=== PATIENT | male | born 2000 | race African-American/Black ===

== ENCOUNTER 2018-11-13 15:30 | Emergency (ER) | payer SELFPAY ==
--- OUTSIDE RECORDS SUMMARY | 2018-11-13 15:32 | XMS REPORT ---
:2000 Author Organization eClinicalWorks Care Team Providers Name Role Phone Ugalde, Na Provider Role Unavailable Allergies, Adverse Reactions, Alerts Substance Reaction Event Type N.K.D.A. Info Not Available Non Drug Allergy Problems Problem Type Condition Code Onset Dates Condition Status Assessment Adult general medical exam Z00.00 Active Problem Cigarette nicotine dependence F17.210 Active without complication Assessment Cigarette nicotine dependence F17.210 Active without complication Medications Medication Code Code Instructions Start End Status Dosage System Date Date Potassium NDC 44481743115 20 MEQ Orally July 12 1 capsule Chloride Once a day 2018 Results No Known Results Summary Purpose eClinicalWorks Submission
--- NOTE | 2018-11-13 16:33 | ER ---
Nurse's Notes [facility] Name: Amadou Hercules Age: 17 yrs Sex: Male : 2000 Arrival Date: 11/13/2018 Time: 15:32 Bed 9 Private MD: Diagnosis: Pain in left leg Presentation: 11/13 15:34 Presenting complaint: Patient states: I hurt my left leg on and have not been la1 able to work, they told me I need a work note to go back. Pt ambulatory with steady gait to [facility]. Transition of care: patient was not received from another setting of care. Onset of symptoms was November 13, 2018. Risk Assessment: Do you want to hurt yourself or someone else? Patient reports no desire to harm self or others. Initial Sepsis Screen: Does the patient meet any 2 criteria? No. Patient's initial sepsis screen is negative. Does the patient have a suspected source of infection? No. Patient's initial sepsis screen is negative. Care prior to arrival: None. 15:34 Method Of Arrival: Ambulatory la1 15:34 Acuity: JACE 5 la1 Historical: - Allergies: 15:36 No Known Allergies; la1 - PMHx: 15:36 None; la1 - Immunization history:: Adult Immunizations up to date. - Social history:: Smoking status: Patient/guardian denies using tobacco. - Ebola Screening: : No symptoms or risks identified at this time. Screenin:37 Abuse screen: Denies threats or abuse. Nutritional screening: No deficits noted. la1 Tuberculosis screening: No symptoms or risk factors identified. Fall Risk None identified. Assessment: 15:36 General: Appears in no apparent distress. Behavior is calm, cooperative. Pain: la1 Complains of pain in left leg. Neuro: Level of Consciousness is awake, alert, obeys commands, Oriented to person, place, time, situation. Cardiovascular: Capillary refill < 3 seconds Patient's skin is warm and dry. Respiratory: Airway is patent Respiratory effort is even, unlabored. GI: No signs and/or symptoms were reported involving the gastrointestinal system. : No signs and/or symptoms were reported regarding the genitourinary system. Musculoskeletal: Circulation, motion, and sensation intact. Range of motion: intact in all extremities. Vital Signs: 15:36 BP 140 / 70; Pulse 73; Resp 16; Temp 97.1; Pulse Ox 98% on R/A; Weight 79.83 kg; Height la1 5 ft. 11 in. (180.34 cm); 15:36 Body Mass Index 24.55 (79.83 kg, 180.34 cm) la1 ED Course: 15:32 Patient arrived in ED. as 15:35 Triage completed. la1 15:36 Arm band placed on right wrist. la1 15:37 Call light in reach. la1 15:37 No provider procedures requiring assistance completed. Patient did not have IV access la1 during this emergency room visit. 15:38 Fili Calderon PA is PHCP. cp 15:38 Augusto Vernon MD is Attending Physician. cp 15:43 Stephanie Urias, RIKY is Primary Nurse. iw 16:35 XRAY Femur LEFT In Process Unspecified. EDMS Administered Medications: No medications were administered Outcome: 16:32 Discharge ordered by MD. cp 16:41 Discharged to home ambulatory. iw 16:41 Condition: stable 16:41 Discharge instructions given to patient, Instructed on discharge instructions, follow up and referral plans. medication usage, Demonstrated understanding of instructions, follow-up care, medications, Prescriptions given X 1. 16:42 Patient left the ED. iw Signatures: Dispatcher [employer] EDMS Xena Snider as Stephanie Urias, RIKY RN iw Pb Poon RN RN la1 Fili Calderon PA PA cp Corrections: (The following items were deleted from the chart) 15:36 15:34 Presenting complaint: Patient states: I hurt my left leg on and have not la1 been able to work, they told me I need a work note to go back. la1
--- NOTE | 2018-11-13 16:33 | EDPHYS ---
Physician Documentation [facility] Name: Amadou Hercules Age: 17 yrs Sex: Male : 2000 Arrival Date: 11/13/2018 Time: 15:32 Bed 9 Private MD: ED Physician Augusto Vernon HPI: 11/13 15:50 This 17 yrs old Black Male presents to ER via Ambulatory with complaints of Leg Pain. cp 15:50 The patient presents with pain, that is acute. The complaints affect the left upper cp leg. Context: resulted from the patient falling, playing basketball, the patient can fully bear weight, the patient is able to ambulate, with mild difficulty. 15:50 Onset: The symptoms/episode began/occurred 3 day(s) ago. Modifying factors: the cp symptoms are aggravated by movement, weight bearing. Associated signs and symptoms: Pertinent negatives calf tenderness, weakness. Treatment prior to arrival includes: no previous treatment. 15:50 Patient reports missing last 2 days of work due to left upper leg pain and needs note cp to return to work. Historical: - Allergies: 15:36 No Known Allergies; la1 - PMHx: 15:36 None; la1 - Immunization history:: Adult Immunizations up to date. - Social history:: Smoking status: Patient/guardian denies using tobacco. - Ebola Screening: : No symptoms or risks identified at this time. ROS: 16:00 Constitutional: Negative for body aches, chills, fever, poor PO intake. cp 16:00 Neck: Negative for pain with movement, pain at rest, stiffness. cp 16:00 Cardiovascular: Negative for chest pain, palpitations. 16:00 Respiratory: Negative for cough, shortness of breath, wheezing. 16:00 Abdomen/GI: Negative for abdominal pain, nausea, vomiting, and diarrhea. 16:00 Back: Negative for pain at rest, pain with movement, radiated pain. 16:00 MS/extremity: Positive for pain, tenderness, of the left upper leg, Negative for decreased range of motion, deformity. 16:00 Neuro: Negative for altered mental status, headache, weakness. 16:00 All other systems are negative. Exam: 16:05 Head/Face: Normocephalic, atraumatic. cp 16:05 Constitutional: The patient appears in no acute distress, alert, awake, non-toxic, well developed, well nourished. 16:05 Eyes: Periorbital structures: appear normal, Conjunctiva: normal, no exudate, no injection, Lids and lashes: appear normal, bilaterally. 16:05 ENT: External ear(s): are unremarkable, Nose: is normal, Mouth: is normal, Posterior pharynx: is normal, airway is patent. 16:05 Neck: ROM/movement: is normal, is supple, without pain, no range of motions limitations, no nuchal rigidity. 16:05 Chest/axilla: Inspection: normal. 16:05 Cardiovascular: Rate: normal. 16:05 Respiratory: the patient does not display signs of respiratory distress, Respirations: normal, no use of accessory muscles, no retractions. 16:05 Abdomen/GI: Exam negative for discomfort, distension, guarding, Inspection: abdomen appears normal. 16:05 Back: pain, is absent, ROM is normal. 16:05 Musculoskeletal/extremity: Extremities: grossly normal except: noted in the left upper leg: pain, swelling, tenderness, There is no evidence of decreased ROM, deformity, ROM: limited passive range of motion due to pain, in the left hip, Perfusion: the extremity is normally perfused throughout, Sensation intact. Vital Signs: 15:36 BP 140 / 70; Pulse 73; Resp 16; Temp 97.1; Pulse Ox 98% on R/A; Weight 79.83 kg; Height la1 5 ft. 11 in. (180.34 cm); 15:36 Body Mass Index 24.55 (79.83 kg, 180.34 cm) la1 MDM: 15:43 Patient medically screened. cp 16:31 Data reviewed: vital signs, nurses notes, radiologic studies, plain films. cp 16:31 Differential diagnosis: closed fracture, contusion. Test interpretation: by ED cp physician or midlevel provider: plain radiologic studies, xrays of left femur negative for fracture. Counseling: I had a detailed discussion with the patient and/or guardian regarding: the historical points, exam findings, and any diagnostic results supporting the discharge/admit diagnosis, radiology results, to return to the emergency department if symptoms worsen or persist or if there are any questions or concerns that arise at home. ED course: VSS. Note given to return to work. 11/13 15:45 Order name: XRAY Femur LEFT cp Administered Medications: No medications were administered Disposition: 16:55 Chart complete. cp Disposition: 11/13/18 16:32 Discharged to Home. Impression: Pain in left leg. - Condition is Stable. - Discharge Instructions: Musculoskeletal Pain, Form - Return To Work. - Prescriptions for Ibuprofen 800 mg Oral Tablet - take 1 tablet by ORAL route every 8 hours As needed take with food; 30 tablet. - Work release form, Medication Reconciliation Form, Thank You Letter, Antibiotic Education, Prescription Opioid Use form. - Follow up: Private Physician; When: 2 - 3 days; Reason: Worsening of condition. - Problem is new. - Symptoms have improved. Addendum: 11/16/2018 15:56 Co-signature as Attending Physician, Augusto Vernon MD. r n Signatures: Dispatcher [employer] EDMS Stephanie Urias RN RN iw Nieto, Roman, MD MD rn Attema, Lee, RN RN la1 Fili Calderon PA PA cp Corrections: (The following items were deleted from the chart) 11/13 16:42 16:32 11/13/2018 16:32 Discharged to Home. Impression: Pain in left leg. Condition is iw Stable. Forms are Medication Reconciliation Form, Thank You Letter, Antibiotic Education, Prescription Opioid Use. Follow up: Private Physician; When: 2 - 3 days; Reason: Worsening of condition. Problem is new. Symptoms have improved. cp
--- NOTE | 2018-11-13 17:03 | RAD REPORT ---
EXAM DESCRIPTION: RAD - Femur Left - 11/13/2018 4:35 pm CLINICAL HISTORY: Left leg pain FINDINGS: A vertical lucency overlies the left femoral neck. Most likely this represents artifact. H owever, if the patient has pain in this region then dedicated plain film series of the left hip would be recommended Remainder of the exam is unremarkable
== END 2018-11-13 16:42 | disposition home or self-care (01) ==
LOC: ER 15:30
DX: M79.605 Pain in left leg (principal)
CPT/HCPCS: 99283

== ENCOUNTER 2019-06-26 21:49 | Emergency (ER) | payer OTHER, SELFPAY ==
--- OUTSIDE RECORDS SUMMARY | 2019-06-26 21:52 | XMS REPORT ---
[...] Status Dosage System Date Date Potassium NDC [id number] 20 MEQ Orally July 12 1 capsule Chloride Once a day 2018 Results No Known Results Summary Purpose eClinicalWorks Submission
[2019-06-26] MEDS ORDERED: FLUORESCEIN SODIUM 1 MG/WRAP ONE (22:41)
[2019-06-26] MEDS ORDERED: TETRACAINE HCL 0.5% 4ML OPTH ONE (22:41)
--- NOTE | 2019-06-26 22:54 | ER ---
Nurse's Notes [facility] [place] Name: Amadou Hercules Age: 18 yrs Sex: Male : 2000 Arrival Date: 06/26/2019 Time: 21:52 Bed 12 Private MD: Diagnosis: Injury of conjunctiva and corneal abrasion without foreign body, right eye Presentation: 06/26 22:32 Presenting complaint: Patient states: he felt like he got something in his left eye bb yesterday he put eye drops in it but it still feels irritated. Transition of care: patient was not received from another setting of care. Onset of symptoms was June 25, 2019. Risk Assessment: Do you want to hurt yourself or someone else? Patient reports no desire to harm self or others. Initial Sepsis Screen: Does the patient meet any 2 criteria? No. Patient's initial sepsis screen is negative. Does the patient have a suspected source of infection? No. Patient's initial sepsis screen is negative. Care prior to arrival: None. 22:32 Method Of Arrival: Ambulatory 22:32 Acuity: JACE 4 bb Historical: - Allergies: 22:33 No Known Allergies; bb - Home Meds: 22:33 None [Active]; bb - PMHx: 22:33 None; bb - PSHx: 22:33 None; bb - Immunization history:: Adult Immunizations up to date, Flu vaccine is up to date. - Coronavirus screen:: The patient has NOT traveled to [place] in the past 14 days. Proceed with normal triage process as indicated. - Social history:: Smoking status: Patient reports the use of cigarette tobacco products, denies chronic smoking, but will smoke occasionally. - Ebola Screening: : No symptoms or risks identified at this time. Screenin:38 Abuse screen: Denies threats or abuse. Nutritional screening: No deficits noted. bb Tuberculosis screening: No symptoms or risk factors identified. Fall Risk None identified. Assessment: 22:38 General: Appears in no apparent distress. Behavior is calm, cooperative. Pain: bb Complains of pain in left eye Pain currently is 6 out of 10 on a pain scale. Neuro: Level of Consciousness is awake, alert, obeys commands, Oriented to person, place, time, situation. Cardiovascular: No deficits noted. Respiratory: Respiratory effort is even, unlabored, Respiratory pattern is regular. GI: No deficits noted. No signs and/or symptoms were reported involving the gastrointestinal system. EENT: Eyes redness to left cornea. Musculoskeletal: Circulation, motion, and sensation intact. 23:08 Reassessment: Patient is alert, oriented x 3, equal unlabored respirations, skin bb warm/dry/pink. pt verbalized understanding of and agrees to plan of care discharge instructions given pt ambulated with steady gait to exit. Vital Signs: 22:33 BP 130 / 60; Pulse 72; Resp 16 S; Temp 98.6(O); Pulse Ox 100% on R/A; Weight 90.72 kg bb (R); Height 5 ft. 11 in. (180.34 cm) (R); Pain 6/10; 22:33 Body Mass Index 27.89 (90.72 kg, 180.34 cm) bb Visual Acuity: 22:33 Left Eye Visual acuity 20/20, ; Right Eye Visual acuity 20/20, ; Both Eyes Visual bb acuity 20/10; Without Lenses; ED Course: 21:52 Patient arrived in ED. jg7 22:31 Geovnany Abreu, FRONT OFFICE MANAGER is PHCP. pm1 22:31 Fili Leo MD is Attending Physician. pm1 22:33 Triage completed. bb 22:33 Arm band placed on Patient placed in an exam room, on a stretcher. bb 22:38 Patient has correct armband on for positive identification. Call light in reach. bb 22:50 Assist provider with eye exam of left eye. using fluorescein stain, Performed by tanya Abreu FRONT OFFICE MANAGER Patient tolerated well. 23:09 Patient did not have IV access during this emergency room visit. 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 Exp: bb 03/23/2021. Lot #: [id number]. } Route: IM; Site: right deltoid; 23:08 Follow up: Response: Medication administered at discharge. bb Outcome: 22:53 Discharge ordered by . pm1 23:09 Discharged to home ambulatory. bb 23:09 Condition: stable 23:09 Discharge instructions given to patient, Instructed on discharge instructions, follow up and referral plans. no driving heavy equipment, medication usage, Demonstrated understanding of instructions, follow-up care, medications, Prescriptions given X 2. 23:10 Patient left the ED. bb Signatures: Sejal Diaz RN RN bb Geovanny Abreu NP FRONT OFFICE MANAGER pm1 Katerina [email or web address] Corrections: (The following items were deleted from the chart) 23:10 23:09 No provider procedures requiring assistance completed. tanya martínez
--- NOTE | 2019-06-26 22:54 | EDPHYS ---
Physician Documentation [facility] [place] Name: Amadou Hercules Age: 18 yrs Sex: Male : 2000 Arrival Date: 06/26/2019 Time: 21:52 Bed 12 Private MD: ED Physician Fili Leo HPI: 06/26 22:43 This 18 yrs old Black Male presents to ER via Ambulatory with complaints of Redness of pm1 Eye. 22:43 The patient is experiencing foreign body sensation, pain, redness, to the left eye, pm1 caused by an unknown mechanism. Onset: The symptoms/episode began/occurred yesterday. Duration: the symptoms are continuous. Aggravated by nothing. Alleviated by nothing. Associated signs and symptoms: Pertinent negatives: fever, visual changes. Patient does not utilize any form of vision correction. Severity of symptoms: in the emergency department the symptoms have improved. The patient has not experienced similar symptoms in the past. It is unknown whether or not the patient has recently seen a physician. Historical: - Allergies: 22:33 No Known Allergies; bb - Home Meds: 22:33 None [Active]; bb - PMHx: 22:33 None; bb - PSHx: 22:33 None; bb - Immunization history:: Adult Immunizations up to date, Flu vaccine is up to date. - Coronavirus screen:: The patient has NOT traveled to [place] in the past 14 days. Proceed with normal triage process as indicated. - Social history:: Smoking status: Patient reports the use of cigarette tobacco products, denies chronic smoking, but will smoke occasionally. - Ebola Screening: : No symptoms or risks identified at this time. ROS: 22:43 Constitutional: Negative for fever, chills, and weight loss. pm1 22:43 ENT: Negative for injury, pain, and discharge, Cardiovascular: Negative for chest pain, palpitations, and edema, Respiratory: Negative for shortness of breath, cough, wheezing, and pleuritic chest pain, Abdomen/GI: Negative for abdominal pain, nausea, vomiting, diarrhea, and constipation. 22:43 Eyes: Positive for foreign body sensation, pain, redness, of the left eye. 22:43 All other systems are negative. Exam: 22:52 Constitutional: This is a well developed, well nourished patient who is awake, alert, pm1 and in no acute distress. Head/Face: Normocephalic, atraumatic. 22:52 ENT: Nares patent. No nasal discharge, no septal abnormalities noted. Tympanic membranes are normal and external auditory canals are clear. Oropharynx with no redness, swelling, or masses, exudates, or evidence of obstruction, uvula midline. Mucous membranes moist. Neck: Trachea midline, no thyromegaly or masses palpated, and no cervical lymphadenopathy. Supple, full range of motion without nuchal rigidity, or vertebral point tenderness. No Meningismus. Chest/axilla: Normal chest wall appearance and motion. Nontender with no deformity. No lesions are appreciated. Cardiovascular: Regular rate and rhythm with a normal S1 and S2. No gallops, murmurs, or rubs. Normal PMI, no JVD. No pulse deficits. Respiratory: Lungs have equal breath sounds bilaterally, clear to auscultation and percussion. No rales, rhonchi or wheezes noted. No increased work of breathing, no retractions or nasal flaring. Skin: Warm, dry with normal turgor. Normal color with no rashes, no lesions, and no evidence of cellulitis. MS/ Extremity: Pulses equal, no cyanosis. Neurovascular intact. Full, normal range of motion. 22:52 Eyes: Periorbital structures: appear normal, Pupils: no acute changes, Extraocular movements: no acute changes, Conjunctiva: injected, in the left eye, Corneas: abrasion, that is small, on the left, at 6 o'clock, foreign body, is not appreciated, a fluorescein strip employed to appreciate the findings, Lids and lashes: appear normal, bilaterally. 22:52 Neuro: Exam negative for acute changes, Orientation: is normal, Motor: moves all fours. Vital Signs: 22:33 BP 130 / 60; Pulse 72; Resp 16 S; Temp 98.6(O); Pulse Ox 100% on R/A; Weight 90.72 kg bb (R); Height 5 ft. 11 in. (180.34 cm) (R); Pain 6/10; 22:33 Body Mass Index 27.89 (90.72 kg, 180.34 cm) bb Visual Acuity: 22:33 Left Eye Visual acuity 20/20, ; Right Eye Visual acuity 20/20, ; Both Eyes Visual bb acuity 20/10; Without Lenses; MDM: 22:31 Patient medically screened. pm1 22:52 Data reviewed: vital signs. Data interpreted: Pulse oximetry: on is 100 %. pm1 Interpretation: normal. Counseling: I had a detailed discussion with the patient and/or guardian regarding: the historical points, exam findings, and any diagnostic results supporting the discharge/admit diagnosis, the need for outpatient follow up, to return to the emergency department if symptoms worsen or persist or if there are any questions or concerns that arise at home. 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 Exp: bb 03/23/2021. Lot #: [id number]. } Route: IM; Site: right deltoid; 23:08 Follow up: Response: Medication administered at discharge. tanya Disposition: 06/27 07:08 Co-signature as Attending Physician, Fili Leo MD I agree with the assessment and mark plan of care. Disposition: 06/26/19 22:53 Discharged to Home. Impression: Injury of conjunctiva and corneal abrasion without foreign body, right eye. - Condition is Stable. - Discharge Instructions: Corneal Abrasion. - Prescriptions for Tylenol- Codeine #3 300-30 mg Oral Tablet - take 2 tablets by ORAL route every 6 hours As needed; 12 tablet. Erythromycin 5 mg/gram (0.5 %) Ophthalmic Ointment - apply 1 ribbon by OPHTHALMIC route every 8 hours; 1 tube. - Work release form, Medication Reconciliation Form, Thank You Letter, Antibiotic Education, Prescription Opioid Use form. - Follow up: Emergency Department; When: As needed; Reason: Worsening of condition. Follow up: Private Physician; When: 2 - 3 days; Reason: Recheck today's complaints, Continuance of care, Re-evaluation by your physician. - Problem is new. - Symptoms have improved. Signatures: Fili Leo MD MD cha Ballard, Brenda, RN RN bb Geovanny Abreu, DOLORES ARCHITECTURAL ADMINISTRATIVE ASSISTANT pm1 Corrections: (The following items were deleted from the chart) 06/26 23:10 22:53 06/26/2019 22:53 Discharged to Home. Impression: Injury of conjunctiva and bb corneal abrasion without foreign body, right eye. Condition is Stable. Forms are Medication Reconciliation Form, Thank You Letter, Antibiotic Education, Prescription Opioid Use. Follow up: Emergency Department; When: As needed; Reason: Worsening of condition. Follow up: Private Physician; When: 2 - 3 days; Reason: Recheck today's complaints, Continuance of care, Re-evaluation by your physician. Problem is new. Symptoms have improved. pm1
[2019-06-26] MEDS ORDERED: TETANUS & DIPHTHERIA TOX,ADULT 0.5 ML VIAL ONE (23:02)
[2019-06-27 00:33] VITALS: BP 130/60; TEMP 98.6; O2SAT 100
== END 2019-06-26 23:10 | disposition home or self-care (01) ==
LOC: ER 21:49
DX: S05.02XA Injury of conjunctiva and corneal abrasion without foreign body, left eye, initial encounter (principal); Z23 Encounter for immunization; Z72.0 Tobacco use
CPT/HCPCS: 90471; 90714; 99283

== ENCOUNTER 2019-08-08 14:02 | Inpatient (IN) | payer OTHER ==
--- OUTSIDE RECORDS SUMMARY | 2019-08-08 14:05 | XMS REPORT ---
:2000 Author Organization eClinicalWorks Care Team Providers Name Role Phone Ugalde, Na Provider Role Unavailable Allergies, Adverse Reactions, Alerts Substance Reaction Event Type N.K.D.A. Info Not Available Non Drug Allergy Problems Problem Type Condition Code Onset Dates Condition Statu s Assessment Adult general medical exam Z00.00 A ctive Problem Cigarette nicotine dependence F17.210 Active without complication Assessment Cigarette nicotine dependence F17.210 Active without complication Medications Medication Code Code Instructions Start End Status Dosage System Date Date Potassium NDC [id number] 20 MEQ Orally July 12 1 capsule Chloride Once a day 2019 Results No Known Results Summary Purpose eClinicalWorks Submission
[2019-08-08] MEDS ORDERED: NA CHLORIDE 0.9% 1,000 ML ONE ×2 (15:13→20:00)
[2019-08-08 15:46] LABS: Absolute Lymphocytes (CBC) 2.1 K/uL (0.7-4.9); Basophils % 0.5 % (0-1.3); Hematocrit 42.7 % (39.6-49.0); Lymphocytes % 25.2 % (15.3-44.8); RBC Red Blood Cell Count 4.66 M/uL (4.33-5.43)
[2019-08-08 15:48] LABS: ALT/SGPT 24 U/L (12-78); AST/SGOT 19 U/L (15-37); Albumin 3.8 g/dL (3.4-5.0); Alkaline Phosphatase 73 U/L (45-117); BUN Blood Urea Nitrogen 15 mg/dL (7-18); Bicarbonate 30 mmol/L (21-32); Bilirubin Direct < 0.1 mg/dL (0-0.2); Bilirubin Total 0.3 mg/dL (0.2-1.0); Glucose Level 92 mg/dL (74-106); Lipase 274 U/L (73-393); Potassium 3.9 mmol/L (3.5-5.1); Protein, Total 7.8 g/dL (6.4-8.2); Sodium Level 140 mmol/L (136-145)
--- NOTE | 2019-08-08 16:29 | RAD REPORT ---
EXAM DESCRIPTION: CT - Abdomen Pelvis W Contrast - 08/08/2019 4:06 pm CLINICAL HISTORY: Abdominal pain COMPARISON: none. TECHNIQUE: Computed axial tomography of the abdomen pelvis was obtained. 100 cc Isovue-300 was admin istered intravenously. Oral contrast was not requested which limits evaluation of bowel. All CT scans are performed using dose optimization technique as appropriate and may include automated exposure control or mA/KV adjustment according to patient size. FINDINGS: The liver, spleen, pancreas, adrenal and kidneys appear unremarkable. There is no evidence of diverticulitis. The appendix is not clearly seen. IMPRESSION: No acute abnormality is displayed. Limited evaluation of the appendix. If the patient has clinical symptoms to suggest appendicitis then a CT scan with oral contrast and opacification of the terminal ileum/cecum would be recommended
--- NOTE | 2019-08-08 19:33 | RAD REPORT ---
EXAM DESCRIPTION: CT - Abdomen Pelvis Wo Contrast - 08/08/2019 7:06 pm CLINICAL HISTORY: Abdominal pain COMPARISON: CT earlier on the same date TECHNIQUE: Computed axial tomography of the abdomen and pelvis was obtained. IV was not requested. O ral contrast was given. Coronal reconstructions performed. All CT scans are performed using dose optimization technique as appropriate and may include automated exposure control or mA/KV adjustment according to patient size. FINDINGS: The liver, spleen, pancreas, adrenals and kidneys appear grossly normal. A borderline dilated tubular structure extends medially from the cecum with mild stranding in the adj acent fat IMPRESSION: The appendix appears borderline dilated. However there is mild adjacent stranding which may indicate early appendicitis. This should be correlated clinically.
--- NOTE | 2019-08-08 19:56 | EDPHYS ---
Physician Documentation [facility] Name: Amadou Hercules Age: 18 yrs Sex: Male : 2000 Arrival Date: 08/08/2019 Time: 14:05 Bed 24 Private MD: ED Physician Fili Leo HPI: 08/07 15:06 This 18 yrs old Black Male presents to ER via Ambulatory with complaints of Abdominal pm1 Pain. 15:06 The patient presents with abdominal pain. pm1 15:06 Onset: The symptoms/episode began/occurred yesterday. pm1 15:19 The symptoms do not radiate. Associated signs and symptoms: Pertinent positives: pm1 diarrhea, Pertinent negatives: nausea and vomiting, chest pain, shortness of breath. The symptoms are described as sharp. Modifying factors: The symptoms are alleviated by nothing, the symptoms are aggravated by nothing. Severity of pain: in the emergency department the pain is actually worse. The patient has not experienced similar symptoms in the past. The patient has not recently seen a physician. Historical: - Allergies: 14:14 No Known Allergies; hb - Home Meds: 14:14 None [Active]; hb - PMHx: 14:14 None; hb - PSHx: 14:14 None; hb - Immunization history:: Adult Immunizations up to date. - Social history:: Smoking status: Patient denies any tobacco usage or history of. ROS: 15:19 Constitutional: Negative for fever, chills, and weight loss, Neck: Negative for injury, pm1 pain, and swelling, Cardiovascular: Negative for chest pain, palpitations, and edema, Respiratory: Negative for shortness of breath, cough, wheezing, and pleuritic chest pain. 15:19 Back: Negative for injury and pain, : Negative for injury, bleeding, discharge, and swelling, MS/Extremity: Negative for injury and deformity, Skin: Negative for injury, rash, and discoloration, Neuro: Negative for headache, weakness, numbness, tingling, and seizure. 15:19 Abdomen/GI: Positive for abdominal pain, diarrhea, Negative for nausea and vomiting, constipation. Exam: 15:19 Constitutional: This is a well developed, well nourished patient who is awake, alert, pm1 and in no acute distress. Head/Face: Normocephalic, atraumatic. Neck: Trachea midline, no thyromegaly or masses palpated, and no cervical lymphadenopathy. Supple, full range of motion without nuchal rigidity, or vertebral point tenderness. No Meningismus. Chest/axilla: Normal chest wall appearance and motion. Nontender with no deformity. No lesions are appreciated. Cardiovascular: Regular rate and rhythm with a normal S1 and S2. No gallops, murmurs, or rubs. Normal PMI, no JVD. No pulse deficits. Respiratory: Lungs have equal breath sounds bilaterally, clear to auscultation and percussion. No rales, rhonchi or wheezes noted. No increased work of breathing, no retractions or nasal flaring. 15:19 Back: No spinal tenderness. No costovertebral tenderness. Full range of motion. Skin: Warm, dry with normal turgor. Normal color with no rashes, no lesions, and no evidence of cellulitis. MS/ Extremity: Pulses equal, no cyanosis. Neurovascular intact. Full, normal range of motion. 15:19 Abdomen/GI: Inspection: abdomen appears normal, Bowel sounds: normal, Palpation: soft, in all quadrants, mild abdominal tenderness, in the umbilical area, mass, is not appreciated, rebound tenderness, is not appreciated. 15:19 Neuro: Exam negative for acute changes, Orientation: is normal, Motor: is normal, moves all fours. Vital Signs: 14:11 BP 154 / 77; Pulse 78; Resp 16; Temp 97.9; Pulse Ox 100% ; Weight 90.72 kg; Height 6 hb ft. (182.88 cm); Pain 0/10; 15:16 BP 134 / 74; Pulse 70; Resp 18; Pulse Ox 100% ; sv 16:56 BP 131 / 78; Pulse 72; Resp 16; Pulse Ox 99% ; sv 18:16 BP 122 / 87; Pulse 63; Resp 16; Pulse Ox 99% ; sv 19:15 BP 123 / 86; Pulse 69; Resp 16; Pulse Ox 100% on R/A; rv 20:30 BP 126 / 63; Pulse 66; Resp 16; Temp 98; Pulse Ox 100% on R/A; Pain 0/10; rv 21:30 BP 133 / 72; Pulse 74; Resp 17; Pulse Ox 100% on R/A; rv 22:15 BP 135 / 107; Pulse 68; Resp 16; Pulse Ox 100% on R/A; rv 14:11 Body Mass Index 27.12 (90.72 kg, 182.88 cm) hb MDM: 14:45 Patient medically screened. pm1 17:24 Data reviewed: vital signs. Data interpreted: Pulse oximetry: on room air is 99 %. pm1 Interpretation: normal. 19:54 Counseling: I had a detailed discussion with the patient and/or guardian regarding: the kb historical points, exam findings, and any diagnostic results supporting the discharge/admit diagnosis, lab results, radiology results, the need for further work-up and treatment in the hospital. Physician consultation: Lexa Beckwith MD was contacted at 19:54, regarding admission, to the medical/surgical unit. patient's condition. 19:56 ED course: Consulted with Dr. Beckwith, will admit overnight, abx, NPO, fluids, and eval rn for surgery in AM.. 08/07 15:06 Order name: Basic Metabolic Panel; Complete Time: 15:56 pm1 08/07 15:06 Order name: CBC with Diff; Complete Time: 15:56 pm1 08/07 15:06 Order name: Creatinine for Radiology; Complete Time: 15:56 pm1 08/07 15:06 Order name: Hepatic Function; Complete Time: 15:56 pm1 08/07 15:06 Order name: Lipase; Complete Time: 15:56 pm1 08/07 15:06 Order name: CT Abd/Pelvis - IV Contrast Only; Complete Time: 16:32 pm1 08/07 15:06 Order name: IV Saline Lock; Complete Time: 15:20 pm1 08/07 15:06 Order name: Labs collected and sent; Complete Time: 15:20 pm1 08/07 16:57 Order name: Abdomen ; Complete Time: 19:40 EDMS Administered Medications: 15:21 Drug: NS 0.9% 1000 ml Route: IV; Rate: 1000 ml; Site: right antecubital; sv 16:00 Follow up: Response: No adverse reaction; IV Status: Completed infusion; IV Intake: sv 1000ml 20:00 Drug: Mefoxin 1 grams Route: IVPB; Infused Over: 30 mins; Site: right antecubital; rv 20:31 Follow up: IV Status: Completed infusion rv 20:00 Drug: NS 0.9% 1000 ml Route: IV; Rate: 125 ml/hr; Site: right antecubital; rv 20:31 Follow up: IV Status: Infusion continued upon admission rv 20:16 Drug: Flagyl 500 mg Volume: 100 ml; Route: IVPB; Rate: 200 ml/hr; Infused Over: 30 rv mins; Site: right antecubital; 21:00 Follow up: IV Status: Completed infusion; IV Intake: 100ml rv Disposition: 08/08/19 19:55 Hospitalization ordered by Lexa Beckwith for Observation. Preliminary diagnosis is Acute appendicitis. - Bed requested for Telemetry/MedSurg (observation). - Status is Observation. rv - Condition is Stable. - Problem is new. - Symptoms are unchanged. Addendum: 08/10/2019 09:57 Co-signature as Attending Physician, Fili Leo MD I agree with the assessment and c ochoa plan of care. Signatures: Dispatcher [employer] EDNH Francia Moore, EXTRACTIONS TECHNOLOGIST-C EXTRACTIONS TECHNOLOGIST-CkJeanine Frey, RN Fili Santoyo MD MD cha Nieto, Roman, MD MD rn Lasagna, Tonya RN RN tl1 Geovanny Abreu, DAY SPA MANAGER DAY SPA MANAGER pm1 Leela White, RN RN Manuel Lewis, RN RN rv Corrections: (The following items were deleted from the chart) 04 16:57 16:35 Abdomen Pelvis W Con+CT.RAD.BRZ ordered. [facility] EDNH 22:30 19:55 Hospitalization Ordered by Lexa Beckwith MD for Observation. Preliminary diagnosis tl1 is Acute appendicitis. Bed requested for Telemetry/MedSurg (observation). Status is Observation. Condition is Stable. Problem is new. Symptoms are unchanged. kb 22:43 22:30 08/08/2019 19:55 Hospitalization Ordered by Lexa Beckwith MD for Observation. rv Preliminary diagnosis is Acute appendicitis. Bed requested for Telemetry/MedSurg (observation). Status is Observation. Condition is Stable. Problem is new. Symptoms are unchanged. tl1
--- NOTE | 2019-08-08 19:56 | ER ---
Nurse's Notes [facility] Name: Amadou Hercules Age: 18 yrs Sex: Male : 2000 Arrival Date: 08/08/2019 Time: 14:05 Bed 24 Private MD: Diagnosis: Acute appendicitis Presentation: 08/07 14:11 Chief complaint: Patient states: "I had stomach pain and diarrhea yesterday after I ate hb [employer], I feel better today but my job is making me get the ok to come back to work." Denies pain/N/V/D/fever. Coronavirus screen: Proceed with normal triage. Ebola Screen: No symptoms or risks identified at this time. Initial Sepsis Screen: Does the patient meet any 2 criteria? No. Patient's initial sepsis screen is negative. Does the patient have a suspected source of infection? No. Patient's initial sepsis screen is negative. Risk Assessment: Do you want to hurt yourself or someone else? Patient reports no desire to harm self or others. Onset of symptoms was August 07, 2019. 14:11 Method Of Arrival: Ambulatory hb 14:11 Acuity: JACE 4 hb 19:00 Acuity: JACE 3 rv Historical: - Allergies: 14:14 No Known Allergies; hb - Home Meds: 14:14 None [Active]; hb - PMHx: 14:14 None; hb - PSHx: 14:14 None; hb - Immunization history:: Adult Immunizations up to date. - Social history:: Smoking status: Patient denies any tobacco usage or history of. Screenin:14 Abuse screen: Denies threats or abuse. Denies injuries from another. Nutritional hb screening: No deficits noted. Tuberculosis screening: No symptoms or risk factors identified. Fall Risk None identified. Assessment: 15:10 General: Appears in no apparent distress. comfortable, well groomed, well developed, sv Behavior is calm, cooperative, appropriate for age. Pain: Complains of pain in umbilical area. Neuro: Level of Consciousness is awake, alert, obeys commands, Oriented to person, place, time, situation, Moves all extremities. Full function Gait is steady. Respiratory: Airway is patent Respiratory effort is even, unlabored, Respiratory pattern is regular, symmetrical. GI: Abdomen is flat, Abd is soft X 4 quads Abdomen is tender to palpation in umbilical area. Derm: Skin is pink, warm \\T\\ dry. 15:21 Reassessment: Patient appears in no apparent distress at this time. No changes from sv previously documented assessment. Patient and/or family updated on plan of care and expected duration. Pain level reassessed. Patient is alert, oriented x 3, equal unlabored respirations, skin warm/dry/pink. 16:20 Reassessment: Patient appears in no apparent distress at this time. No changes from sv previously documented assessment. Patient and/or family updated on plan of care and expected duration. Pain level reassessed. Patient is alert, oriented x 3, equal unlabored respirations, skin warm/dry/pink. 17:05 Reassessment: Patient appears in no apparent distress at this time. No changes from sv previously documented assessment. Patient and/or family updated on plan of care and expected duration. Pain level reassessed. Patient is alert, oriented x 3, equal unlabored respirations, skin warm/dry/pink. 18:16 Reassessment: Patient appears in no apparent distress at this time. No changes from sv previously documented assessment. Patient and/or family updated on plan of care and expected duration. Pain level reassessed. Patient is alert, oriented x 3, equal unlabored respirations, skin warm/dry/pink. 19:20 Reassessment: Patient appears in no apparent distress at this time. Patient and/or rv family updated on plan of care and expected duration. Pain level reassessed. Patient is alert/active/playful, equal unlabored respirations, skin warm/dry/pink. PATIENT CAME BACK FROM CT SCAN. AWAITING RESULT OF THE SCAN. PATIENT DENIES NAUSEA OR PAIN. Patient denies pain at this time. GI: Bowel sounds present X 4 quads. 20:17 Reassessment: DR NICOLAS ASSESSED AND EXPLAINED THE TEST RESULTS TO THE PATIENT AND PLAN rv OF CARE. PATIENT AGREED FOR ADMISSION AND TO UNDERGO SURGERY. 22:28 Reassessment: STILL AWAITING ROOM ASSIGNMENT. rv Vital Signs: 14:11 BP 154 / 77; Pulse 78; Resp 16; Temp 97.9; Pulse Ox 100% ; Weight 90.72 kg; Height 6 hb ft. (182.88 cm); Pain 0/10; 15:16 BP 134 / 74; Pulse 70; Resp 18; Pulse Ox 100% ; sv 16:56 BP 131 / 78; Pulse 72; Resp 16; Pulse Ox 99% ; sv 18:16 BP 122 / 87; Pulse 63; Resp 16; Pulse Ox 99% ; sv 19:15 BP 123 / 86; Pulse 69; Resp 16; Pulse Ox 100% on R/A; rv 20:30 BP 126 / 63; Pulse 66; Resp 16; Temp 98; Pulse Ox 100% on R/A; Pain 0/10; rv 21:30 BP 133 / 72; Pulse 74; Resp 17; Pulse Ox 100% on R/A; rv 22:15 BP 135 / 107; Pulse 68; Resp 16; Pulse Ox 100% on R/A; rv 14:11 Body Mass Index 27.12 (90.72 kg, 182.88 cm) hb ED Course: 14:05 Patient arrived in ED. as 14:13 Triage completed. hb 14:14 Arm band placed on. hb 14:44 Geovanny Aberu NP is PHCP. pm1 14:44 Fili Leo MD is Attending Physician. pm1 14:47 Jeanine Mcgowan, RIKY is Primary Nurse. sv 15:10 Patient has correct armband on for positive identification. Placed in gown. Bed in low sv position. Call light in reach. Pulse ox on. NIBP on. Door closed. Head of bed elevated. 15:15 Inserted saline lock: 20 gauge in right antecubital area, using aseptic technique. sv Blood collected. Flushed right antecubital with 5 ml normal saline. 16:09 CT Abd/Pelvis - IV Contrast Only In Process Unspecified. EDMS 17:54 PHCP role handed off by Geovanny Abreu NP kb 17:54 Francia Moore FNP-C is PHCP. kb 18:[address] Scan. sv 19:02 Report given to Jai LAN. sv 19:06 Abdomen In Process Unspecified. EDMS 19:07 Primary Nurse role handed off by Jeanine Mcgowan RN sv 19:19 Manuel Lewis RN is Primary Nurse. rv 19:55 Lexa Beckwith MD is Hospitalizing Provider. kb 20:31 No provider procedures requiring assistance completed. IV is patent, with fluids rv infusing freely, with good blood return, Patient admitted, IV remains in place. Administered Medications: 15:21 Drug: NS 0.9% 1000 ml Route: IV; Rate: 1000 ml; Site: right antecubital; sv 16:00 Follow up: Response: No adverse reaction; IV Status: Completed infusion; IV Intake: sv 1000ml 20:00 Drug: Mefoxin 1 grams Route: IVPB; Infused Over: 30 mins; Site: right antecubital; rv 20:31 Follow up: IV Status: Completed infusion rv 20:00 Drug: NS 0.9% 1000 ml Route: IV; Rate: 125 ml/hr; Site: right antecubital; rv 20:31 Follow up: IV Status: Infusion continued upon admission rv 20:16 Drug: Flagyl 500 mg Volume: 100 ml; Route: IVPB; Rate: 200 ml/hr; Infused Over: 30 rv mins; Site: right antecubital; 21:00 Follow up: IV Status: Completed infusion; IV Intake: 100ml rv Intake: 16:00 IV: 1000ml; Total: 1000ml. sv 21:00 IV: 100ml; Total: 1100ml. rv Outcome: 19:55 Decision to Hospitalize by Provider. kb 22:38 Admitted to Med/surg accompanied by tech, room 216, with chart, Report called to NIA cartagena RN 22:38 Condition: good 22:38 Instructed on the need for admit, Demonstrated understanding of instructions. 22:43 Patient left the ED. rv Signatures: Dispatcher [employer] EDFrancia Li, FILM CRITIC-C FILM CRITIC-Jeanine Bo, RN Xena Fry Patrick, LICENSED CLINICIAN LICENSED CLINICIAN pm1 Leela White RN RN hb Vicente, Ronaldo, RN RN rv
[2019-08-08] MEDS ORDERED: CEFOXITIN/SWI 1gm 1 GM/10 ML SYR ONE (20:11)
[2019-08-08] MEDS ORDERED: METRONIDAZOLE 500mg IVPB 500 MG/100 ML BAG IV ONE (20:12)
[2019-08-08] MEDS ORDERED: MORPHINE 4 MG/ML SYR IV PRN (22:47)
[2019-08-08] MEDS ORDERED: ONDANSETRON 4 MG/2 ML VIAL IV PRN (22:47)
[2019-08-08] MEDS ORDERED: ACETAMINOPHEN 500 MG TAB PO PRN (22:47)
[2019-08-08 22:59] VITALS: BMI 27.1
[2019-08-08] MEDS: NA CHLORIDE 0.9% 1,000 ML IV SCH (23:12)
[2019-08-09] MEDS ORDERED: CEFOXITIN 1 GM/10 ML SYR IV SCH (02:00)
[2019-08-09] MEDS ORDERED: CEFOXITIN SODIUM 1 GM/VIAL ONE (02:02)
[2019-08-09] MEDS: METRONIDAZOLE 500mg IVPB 500 MG/100 ML BAG IV SCH ×3 (04:26→20:17)
[2019-08-09] MEDS: NA CHLORIDE 0.9% 1,000 ML IV SCH ×3 (06:11→22:47)
[2019-08-09 06:16] LABS: Absolute Lymphocytes (CBC) 2.2 K/uL (0.7-4.9); Lymphocytes % 38.8 % (15.3-44.8); MPV 7.7 fL (7.6-11.3); RBC Red Blood Cell Count 4.36 M/uL (4.33-5.43)
[2019-08-09 06:26] LABS: BUN Blood Urea Nitrogen 10 mg/dL (7-18); Bicarbonate 29 mmol/L (21-32); Glucose Level 86 mg/dL (74-106); Potassium 4.1 mmol/L (3.5-5.1); Sodium Level 142 mmol/L (136-145)
[2019-08-09] MEDS: CEFOXITIN/SWI 1gm 1 GM/10 ML SYR IV SCH ×4 (08:49→23:37)
[2019-08-09] MEDS ORDERED: Ringers Lactate 1,000 ML IV ONE (10:13)
--- NOTE | 2019-08-09 10:28 | PREOPHP ---
Date of Admission: 08/08/2019 Reason For Consultation: Abdominal pain. History Of Present Illness: Patient is a 18-year-old gentleman comes in with a 2-day history of diff use periumbilical pain localizing to the right lower quadrant associated with nausea, 1 episode of di arrhea, no nausea or vomiting. No sore throat, runny nose, cough, headaches, or dizziness. He does have anorexia and no fever or chills. Review of Systems: Otherwise unremarkable. Past Medical History: Negative. Past Surgical History: Negative. Allergies: NO ALLERGIES. Social History: He does not smoke. Drinks occasionally. Family History: Noncontributory. Physical Examination: Vital Signs: Stable. He is afebrile. He is awake, alert, and oriented x3. Head and Neck: Cranial nerves 2 through 12 grossly within normal limits. No neck masses. No JVD. Throat clear. Neck is supple. Chest: Clear. Heart: S1 and S2. Abdomen: Soft, nondistended, positive Rovsing sign, positive right lower quadrant tenderness. No re bound. No rigidity or guarding. Extremity: Adequately perfused. Nontender. Neuro: Nonfocal. Laboratory Data: Reviewed. His white count is normal. Chemistry reviewed, also normal. CT of the abdomen and pelvis reviewed with the radiologist, essentially is consistent with acute appendicitis w ith dilatation and adjacent stranding of the appendiceal mesentery. Assessment: Acute appendicitis. Plan: Admit n.p.o., IV fluid, IV antibiotic, to the OR for laparoscopic appendectomy, possible open. The patient understands the risks, benefits, and alternatives and agrees to procedure. AIDAN/ANDRADE Voice ID: [id number]
[2019-08-09] MEDS ORDERED: dexAMETHasone 10 MG/ML VIAL ONE (10:54)
[2019-08-09] MEDS ORDERED: propofoL 200 MG/20 ML VIAL IV ONE (10:54)
[2019-08-09] MEDS ORDERED: FENTANYL CITR 100 MCG/2 ML ONE (10:54)
[2019-08-09] MEDS ORDERED: MIDAZOLAM HCL 2 MG/2 ML INJ ONE (10:54)
[2019-08-09] MEDS ORDERED: ONDANSETRON 4 MG/2 ML VIAL ONE (10:55)
[2019-08-09] MEDS ORDERED: LIDOCAINE 2% MPF 5 ML VIAL ONE (10:55)
[2019-08-09] MEDS ORDERED: ROCURONIUM 50 MG/5 ML VIAL IV ONE (10:55)
[2019-08-09] MEDS ORDERED: GLYCOPYRROLATE 0.2 MG/ML SYR ONE (12:43)
[2019-08-09] MEDS ORDERED: KETOROLAC 30 MG/ML INJ ONE (12:44)
[2019-08-09] MEDS ORDERED: NEOSTIGMINE 1 MG/ML -5 ML ONE (12:44)
--- NOTE | 2019-08-09 12:57 | P.OP ---
Volunteer Services Manager: Safia HILL Preoperative diagnosis: Acute Appendicitis Postoperative diagnosis: Same Primary procedure: Lap Appy Anesthesia: General Estimated blood loss: min Specimen: Appy Findings: as above Complications: None Transferred to: Recovery Room Condition: Good
[2019-08-09] MEDS ORDERED: MORPHINE 10 MG/ML VIAL ONE (13:02)
[2019-08-09] MEDS ORDERED: HYDROCODONE/APAP 7.5/325 MG TAB PO PRN (13:12)
[2019-08-09] MEDS ORDERED: ONDANSETRON 4 MG/2 ML VIAL IV PRN (13:12)
[2019-08-09] MEDS: MEPERIDINE HCL 25 MG/0.5 ML ONE ×2 (14:00→14:05)
[2019-08-09] MEDS: HYDROMORPHONE HCL 1 MG/ML INJ ONE ×2 (14:08→14:15)
[2019-08-09] MEDS: HYDROMORPHONE HCL 1 MG/ML INJ IV PRN ×2 (16:40→20:47)
--- NOTE | 2019-08-09 23:10 | OP ---
Date of Procedure: 08/09/2019 Surgeon: Lexa Beckwith MD Body Joiner: SERGIO Beltrán. Preoperative Diagnosis: Acute appendicitis. Postoperative Diagnosis: Acute suppurative appendicitis. Estimated Blood Loss: Minimal. Procedure: Laparoscopic appendectomy. Specimen: Appendix. Findings: As above. Anesthesia: General. Complications: None. Disposition: Patient tolerated the procedure in stable condition, taken to Recovery in good conditio n. Procedure In Detail: Patient was brought to the OR and placed in supine position. General anesthesi a was begun. Patient was prepped and draped in usual sterile fashion. Marcaine 0.5% was infiltrated locally. A #15 blade was used to make a 1 cm supraumbilical midline incision. Subcutaneous tissue divided. Fascia was identified and divided. A #1 Vicryl stay suture was placed. Peritoneal cavity was entered with sharp and blunt dissection. 12 mm trocar was placed into the peritoneal cavity unde r direct vision. Pneumoperitoneum was established and then, two 5 trocars were placed, 1 in the supr apubic region and 1 in the left lateral quadrant. Laparoscopy revealed acute suppurative appendiciti s with the appendix going medially and then superiorly. Tip of the appendix was identified and then the mesoappendix divided with Endo-JEFFREY stapling device until the base of the appendix on the cecum cl early identified and that was divided as well. The appendix was retrieved through the umbilicus via EndoCatch bag. Right lower quadrant was examined. There was some oozing of blood noted on the mesoa ppendix which was controlled with vascular clips. Right lower quadrant was irrigated. Effluent was clear. No evidence of bleeding or bowel injury appreciated. Subsequently, all trocars were removed under direct vision. Stay sutures were tied to each other across the fascial defect. Subcutaneous w ounds were irrigated. Bleeding controlled with cautery. 3-0 chromic used to approximate the subcuta neous tissue and then close the skin. Sterile dressing was applied. Patient was awakened and taken to Recovery in good general condition. /MODL Voice ID: [id number] Report ID: [id number]
[2019-08-10] MEDS: METRONIDAZOLE 500mg IVPB 500 MG/100 ML BAG IV SCH (03:08)
[2019-08-10] MEDS: NA CHLORIDE 0.9% 1,000 ML IV SCH ×2 (03:15→05:04)
[2019-08-10] MEDS: CEFOXITIN/SWI 1gm 1 GM/10 ML SYR IV SCH (05:07)
[2019-08-10 07:02] LABS: Absolute Lymphocytes (CBC) 1.3 K/uL (0.7-4.9); Basophils % 0.3 % (0-1.3); Hematocrit 42.9 % (39.6-49.0); Lymphocytes % 10.9 % (15.3-44.8); MPV 8.7 fL (7.6-11.3)
[2019-08-10 08:41] VITALS: O2SAT 99
[2019-08-10 09:56] VITALS: BP 130/69; TEMP 97.3
--- NOTE | 2019-08-10 10:26 | DS ---
Date of Discharge: 08/10/2019 Admitting Diagnosis: Acute appendicitis. Discharge Diagnosis: Acute appendicitis. Procedure Performed: Laparoscopic appendectomy. Hospital Course: Patient is a 18-year-old gentleman underwent the aforementioned procedure. Postope ratively, he was tolerating diet, ambulating, pain controlled on p.o. pain medication, afebrile there fore patient will be discharged to home. Disposition: Home. Condition: Stable. Discharge Instructions: Remove outer dressing in a.m. Shower. Keep wound clean and dry, keep Steri -Strips on at all times. Follow up in my office in 1 week. Call for appointment. Jazmine. Prescription given, Tylenol No. 3 for pain. /MODL Voice ID: [id number] Report ID: [id number]
== END 2019-08-10 10:43 | disposition home or self-care (01) | DRG 343 ==
LOC: ER 14:02 → ERHOLD 19:56 → 2ND 22:37 → OBSVTOIN 08-10 07:21
PROVIDERS: ADMIT Surgery; ATTEND Surgery
PROC: 0DTJ4ZZ Resection of Appendix, Percutaneous Endoscopic Approach (ICD-10-PCS; principal; 2019-08-09 14:15)
DX: K35.80 Unspecified acute appendicitis (principal)
CPT/HCPCS: 36415; 74176; 74177; 80048; 80076; 83690; 85025; 88304; 96361; 96365; 99285; G0378; J0694; J1100; J1170; J2175; J2250; J2405; J2704; J2710; J3010; J7030; J7120; Q9967

== ENCOUNTER 2019-08-22 04:58 | Inpatient (IN) | payer OTHER ==
--- OUTSIDE RECORDS SUMMARY | 2019-08-22 05:00 | XMS REPORT ---
:2000 Author Organization [facility] t Address [address] [place] [address] Care Team Providers Name Role Phone Unavailable Unavailable Unavailable Problems Condition Condition Condition Status Onset Resolution Last Treatin g Comments Name Details Category Date Date Treatment Clinician Date Cigarette Cigarette Problem Active nicotine nicotine dependence dependence without without complicatio complicatio n n Allergies, Adverse Reactions, Alerts This patient has no known allergies or adverse reactions. Medications Ordered Filled Start Stop Current Ordering Indication Dosage Frequency Signature Comments Components Medication Medication Date Date Medication? Clinician (SIG) Name Name Potassium Potassium 2019-0 Yes Na Ugalde 1 capsule Chloride Chloride 3-12 00:00: 00 Encounters Start End Encounter Admission Attending Care Care Encounter Date/Time Date/Time Type Type Clinicians Facility Department ID 2019-08-08 2019-08-08 [id number] 10:31:00 10:31:00 [place] [facility] 2018-07-26 2018-07-26 [id number] 15:00:00 15:00:00 [facility]
--- OUTSIDE RECORDS SUMMARY | 2019-08-22 05:00 | XMS REPORT ---
:2000 Author Organization [employer] Care Team Providers Name Role Phone Ugalde, Na Provider Role Unavailable Allergies No Known Allergies Problems Problem Type Condition Code Onset Dates Condition Statu s Problem Cigarette nicotine dependence F17.210 Active without complication Medications No Known Medications Results No Known Results Summary Purpose [employer] Submission
[2019-08-22] MEDS ORDERED: NA CHLORIDE 0.9% 1,000 ML ONE (05:12)
[2019-08-22] MEDS ORDERED: ONDANSETRON 4 MG/2 ML VIAL ONE ×2 (05:12→15:32)
[2019-08-22] MEDS ORDERED: MORPHINE 4 MG/ML SYR ONE ×2 (05:16→06:51)
[2019-08-22 05:35] LABS: ALT/SGPT 31 U/L (12-78); AST/SGOT 19 U/L (15-37); Albumin 4.6 g/dL (3.4-5.0); Alkaline Phosphatase 75 U/L (45-117); BUN Blood Urea Nitrogen 14 mg/dL (7-18); Bicarbonate 26 mmol/L (21-32); Bilirubin Direct 0.1 mg/dL (0-0.2); Bilirubin Total 0.4 mg/dL (0.2-1.0); Glucose Level 114 mg/dL (74-106); Lipase 238 U/L (73-393); Potassium 3.4 mmol/L (3.5-5.1); Protein, Total 9.4 g/dL (6.4-8.2); Sodium Level 138 mmol/L (136-145)
[2019-08-22] MEDS ORDERED: PANTOPRAZOLE 40 MG INJ ONE (05:37)
[2019-08-22 05:54] LABS: Basophils % 0.5 % (0-1.3); Hematocrit 48.2 % (39.6-49.0); Lymphocytes % 15.5 % (15.3-44.8); MPV 7.9 fL (7.6-11.3); RBC Red Blood Cell Count 5.35 M/uL (4.33-5.43)
--- NOTE | 2019-08-22 06:50 | EDPHYS ---
Physician Documentation [facility] Name: Amadou Hercules Age: 18 yrs Sex: Male : 2000 Arrival Date: 08/22/2019 Time: 04:59 Bed 8 Private MD: ED Physician Lilibeth Callahan HPI: 08/21 06:46 This 18 yrs old Black Male presents to ER via EMS with complaints of Abdominal Pain. ma2 06:46 The patient presents with abdominal pain. Onset: The symptoms/episode began/occurred ma2 gradually, 2 day(s) ago. Associated signs and symptoms: Pertinent positives: nausea and vomiting, Pertinent negatives: blood in stools, shortness of breath, testicular pain. The symptoms are described as burning. Severity of pain: At its worst the pain was moderate in the emergency department the pain is unchanged. The patient has not experienced similar symptoms in the past. s/p appendectomy 1 week ago . Historical: - Allergies: 05:04 No Known Allergies; ea - Home Meds: 05:04 None [Active]; ea - PSHx: 05:04 Appendectomy; ea - Immunization history:: Adult Immunizations up to date. - Social history:: Patient/guardian denies using alcohol, street drugs, The patient lives with family, Smoking status: Patient reports the use of cigarette tobacco products, denies chronic smoking, but will smoke occasionally. - Family history:: not pertinent. ROS: 06:46 Constitutional: Negative for fever, chills, and weight loss. ma2 06:46 All other systems are negative. Exam: 06:46 Constitutional: This is a well developed, well nourished patient who is awake, alert, ma2 and in no acute distress. Chest/axilla: Normal chest wall appearance and motion. Nontender with no deformity. No lesions are appreciated. Cardiovascular: Regular rate and rhythm with a normal S1 and S2. No gallops, murmurs, or rubs. Normal PMI, no JVD. No pulse deficits. Respiratory: Lungs have equal breath sounds bilaterally, clear to auscultation and percussion. No rales, rhonchi or wheezes noted. No increased work of breathing, no retractions or nasal flaring. Abdomen/GI: moderetly tender all over no rebound , with normal bowel sounds. No distension or tympany. No guarding or rebound. MS/ Extremity: Pulses equal, no cyanosis. Neurovascular intact. Full, normal range of motion. Neuro: Awake and alert, GCS 15, oriented to person, place, time, and situation. Cranial nerves II-XII grossly intact. Motor strength 5/5 in all extremities. Sensory grossly intact. Cerebellar exam normal. Normal gait. Vital Signs: 05:00 BP 149 / 98; Pulse 77; Resp 18; Pulse Ox 99% on R/A; ea 05:01 BP 154 / 91; Pulse 85; Resp 20; Temp 98.3; Pulse Ox 100% on R/A; Weight 90.72 kg; ea Height 6 ft. (182.88 cm); Pain 9/10; 06:30 BP 143 / 59; Pulse 68; Resp 18; Pulse Ox 98% on R/A; ea 07:00 BP 160 / 81; Pulse 79; Resp 16; Pulse Ox 99% ; sv 07:33 BP 162 / 82; Pulse 62; Resp 17; Pulse Ox 97% ; sv 05:01 Body Mass Index 27.12 (90.72 kg, 182.88 cm) ea MDM: 06:41 Patient medically screened. ma2 06:46 Differential diagnosis: Cholelithiasis, diverticulitis, gastritis, gastroesophageal ma2 reflux disease, pancreatitis. Data reviewed: vital signs, nurses notes. Counseling: I had a detailed discussion with the patient and/or guardian regarding: the historical points, exam findings, and any diagnostic results supporting the discharge/admit diagnosis, the presence of at least one elevated blood pressure reading (>120/80) during this emergency department visit, the need for further work-up and treatment in the hospital. Response to treatment: the patient's symptoms have markedly improved after treatment. ED course: discussed with dr. jaime . 08/21 05:04 Order name: Basic Metabolic Panel; Complete Time: 06:44 sg 08/21 05:04 Order name: CBC with Diff; Complete Time: 06:44 sg 08/21 05:04 Order name: Creatinine for Radiology; Complete Time: 06:44 sg 08/21 05:04 Order name: Hepatic Function; Complete Time: 06:44 sg 08/21 05:04 Order name: Lipase; Complete Time: 06:44 sg 08/21 07:02 Order name: Basic Metabolic Panel EDMS 08/21 05:25 Order name: CT Abd/Pelvis - IV Contrast Only rv 08/21 07:02 Order name: Basic Metabolic Panel EDMS 08/21 07:02 Order name: CBC with Automated Diff EDMS 08/21 07:02 Order name: CBC with Automated Diff EDMS 08/21 07:02 Order name: Lipase EDMS 08/21 07:02 Order name: Lipase EDMS 08/21 05:04 Order name: IV Saline Lock; Complete Time: 05:09 sg 08/21 05:04 Order name: Labs collected and sent; Complete Time: 05:09 sg 08/21 06:45 Order name: NPO; Complete Time: 07:10 ma2 08/21 06:45 Order name: NG Tube; Complete Time: 07:10 ma2 08/21 07:02 Order name: CONS Pharmacy Consult EDMS 08/21 07:02 Order name: NPO EDMS Administered Medications: 05:12 Drug: NS 0.9% 1000 ml Route: IV; Rate: 1 bolus; Site: right antecubital; ea 06:11 Follow up: IV Status: Completed infusion; IV Intake: 1000ml rv 05:12 Drug: Zofran (Ondansetron) 4 mg Route: IVP; Site: right antecubital; ea 06:11 Follow up: Response: No adverse reaction; Nausea unchanged rv 05:12 Drug: morphine 4 mg {Note: RASS 1.} Route: IVP; Site: right antecubital; ea 06:11 Follow up: Response: No adverse reaction; Pain is unchanged, physician notified; RASS: rv Alert and Calm (0) 05:33 Drug: ProTONIX 40 mg Route: IVP; Site: right antecubital; rv 06:12 Follow up: Response: No adverse reaction rv 06:49 Drug: morphine 4 mg {Note: RASS 1.} Route: IVP; Site: right antecubital; ea 07:00 Follow up: Response: No adverse reaction; RASS: Restless (+1) sv 06:50 Drug: Zosyn 3.375 grams Route: IVPB; Infused Over: 60 mins; Site: right antecubital; ea 07:56 Follow up: Response: No adverse reaction; IV Status: Completed infusion; IV Intake: sv 100ml Disposition: 08/22/19 06:49 Hospitalization ordered by Lexa Jaime for Inpatient Admission. Preliminary diagnosis is Other and unspecified intestinal obstruction. - Bed requested for Telemetry/MedSurg (Inpatient). - Status is Inpatient Admission. sv - Condition is Stable. - Problem is new. - Symptoms are unchanged. Signatures: Dispatcher [employer] EDMS Jeanine Mcgowan RN RIKY Luther Fisher, RN RN Rita Pate, RN Jayme Fuller ea RN RN ja1 Lilibeth Callahan MD MD ma2 Manuel Lewsi RN RN rv Corrections: (The following items were deleted from the chart) 07:29 06:49 Hospitalization Ordered by Lexa Jaime MD for Inpatient Admission. Preliminary ja1 diagnosis is Other and unspecified intestinal obstruction. Bed requested for Telemetry/MedSurg (Inpatient). Status is Inpatient Admission. Condition is Stable. Problem is new. Symptoms are unchanged. il2 07:56 07:29 08/22/2019 06:49 Hospitalization Ordered by Lexa Jaime MD for Inpatient sv Admission. Preliminary diagnosis is Other and unspecified intestinal obstruction. Bed requested for Telemetry/MedSurg (Inpatient). Status is Inpatient Admission. Condition is Stable. Problem is new. Symptoms are unchanged. ja1
--- NOTE | 2019-08-22 06:50 | ER ---
Nurse's Notes [facility] Name: Amadou Hercules Age: 18 yrs Sex: Male : 2000 Arrival Date: 08/22/2019 Time: 04:59 Bed 8 Private MD: Diagnosis: Other and unspecified intestinal obstruction Presentation: 08/21 05:01 Chief complaint: EMS states: Reports pt complaining of lower abdominal pain, and one ea episode of bloody emesis. Pt reported to EMS that he had an appendectomy about 1 week ago. Coronavirus screen: Proceed with normal triage. Ebola Screen: No symptoms or risks identified at this time. Initial Sepsis Screen: Does the patient meet any 2 criteria? No. Patient's initial sepsis screen is negative. Does the patient have a suspected source of infection? No. Patient's initial sepsis screen is negative. Risk Assessment: Do you want to hurt yourself or someone else? Patient reports no desire to harm self or others. Onset of symptoms was August 22, 2019. 05:01 Method Of Arrival: EMS: [facility] ea 05:01 Acuity: JACE 3 ea Triage Assessment: 05:03 General: Appears uncomfortable, Behavior is appropriate for age. Pain: Complains of ea pain in right lower quadrant. GI: Abdomen is non-distended. Historical: - Allergies: 05:04 No Known Allergies; ea - Home Meds: 05:04 None [Active]; ea - PSHx: 05:04 Appendectomy; ea - Immunization history:: Adult Immunizations up to date. - Social history:: Patient/guardian denies using alcohol, street drugs, The patient lives with family, Smoking status: Patient reports the use of cigarette tobacco products, denies chronic smoking, but will smoke occasionally. - Family history:: not pertinent. Screenin:02 Abuse screen: Denies threats or abuse. Nutritional screening: No deficits noted. ea Tuberculosis screening: No symptoms or risk factors identified. Fall Risk None identified. Assessment: 05:03 General: Appears uncomfortable, Behavior is appropriate for age. Pain: Complains of ea pain in right lower quadrant. Neuro: Level of Consciousness is awake, alert, Oriented to person, place, time. Cardiovascular: Patient's skin is warm and dry. Respiratory: Airway is patent Respiratory effort is even, unlabored, Respiratory pattern is regular, symmetrical. GI: Reports nausea, vomiting. 07:16 Reassessment: Patient appears in no apparent distress at this time. Patient and/or ph family updated on plan of care and expected duration. Pain level reassessed. Patient is alert, oriented x 3, equal unlabored respirations, skin warm/dry/pink. NGT inserted by Jai LAN, pt tolerated well, connected to low intermittent suction, clear gastric contents noted, awaiting room assignment, VSS. 07:32 Reassessment: Attempted to call report, nurse to call back. sv 07:57 Reassessment: Patient appears in no apparent distress at this time. Patient and/or sv family updated on plan of care and expected duration. Pain level reassessed. Patient is alert, oriented x 3, equal unlabored respirations, skin warm/dry/pink. Vital Signs: 05:00 BP 149 / 98; Pulse 77; Resp 18; Pulse Ox 99% on R/A; ea 05:01 BP 154 / 91; Pulse 85; Resp 20; Temp 98.3; Pulse Ox 100% on R/A; Weight 90.72 kg; ea Height 6 ft. (182.88 cm); Pain 9/10; 06:30 BP 143 / 59; Pulse 68; Resp 18; Pulse Ox 98% on R/A; ea 07:00 BP 160 / 81; Pulse 79; Resp 16; Pulse Ox 99% ; sv 07:33 BP 162 / 82; Pulse 62; Resp 17; Pulse Ox 97% ; sv 05:01 Body Mass Index 27.12 (90.72 kg, 182.88 cm) ea ED Course: 04:59 Patient arrived in ED. cl3 05:00 Initial lab(s) drawn, by az, sent to lab. Inserted saline lock: 18 gauge in right rv antecubital area, using aseptic technique. Blood collected. 05:01 Rita Solis, RIKY is Primary Nurse. ea 05:02 Triage completed. ea 05:02 Patient has correct armband on for positive identification. Bed in low position. Call ea light in reach. 05:03 Patient placed in an exam room, on a stretcher, on pulse oximetry. ea 05:07 Lilibeth Callahan MD is Attending Physician. sg 06:16 CT Abd/Pelvis - IV Contrast Only In Process Unspecified. EDMS 06:48 Lexa Beckwith MD is Hospitalizing Provider. ma2 07:00 Report given to Terrie LAN and Jeanine LAN. ea 07:10 NGT: inserted 16 Fr. via right nare. verified placement of air over stomach, verified rv return of gastric contents, to intermittent suction. Returned gastric contents. Patient tolerated well. 07:33 No provider procedures requiring assistance completed. Patient admitted, IV remains in sv place. intact. Administered Medications: 05:12 Drug: NS 0.9% 1000 ml Route: IV; Rate: 1 bolus; Site: right antecubital; ea 06:11 Follow up: IV Status: Completed infusion; IV Intake: 1000ml rv 05:12 Drug: Zofran (Ondansetron) 4 mg Route: IVP; Site: right antecubital; ea 06:11 Follow up: Response: No adverse reaction; Nausea unchanged rv 05:12 Drug: morphine 4 mg {Note: RASS 1.} Route: IVP; Site: right antecubital; ea 06:11 Follow up: Response: No adverse reaction; Pain is unchanged, physician notified; RASS: rv Alert and Calm (0) 05:33 Drug: ProTONIX 40 mg Route: IVP; Site: right antecubital; rv 06:12 Follow up: Response: No adverse reaction rv 06:49 Drug: morphine 4 mg {Note: RASS 1.} Route: IVP; Site: right antecubital; ea 07:00 Follow up: Response: No adverse reaction; RASS: Restless (+1) sv 06:50 Drug: Zosyn 3.375 grams Route: IVPB; Infused Over: 60 mins; Site: right antecubital; ea 07:56 Follow up: Response: No adverse reaction; IV Status: Completed infusion; IV Intake: sv 100ml Intake: 06:11 IV: 1000ml; Total: 1000ml. rv 07:56 IV: 100ml; Total: 1100ml. sv Outcome: 06:49 Decision to Hospitalize by Provider. ma2 07:45 Admitted to Med/surg accompanied by tech, via wheelchair, room 218, with chart, Report sv called to Carolina LAN 07:45 Condition: stable 07:45 Instructed on the need for admit. 07:56 Patient left the ED. sv Signatures: Dispatcher [facility] Jeanine Yoo RN RN Luther Fisher RN Terrie Gonzalez, RN Rita Isaac ph, Lilibeth Kennedy RN, ea, MD MD ma2 Manuel Lewis RN Lai Richardson cl3 Corrections: (The following items were deleted from the chart) 06:50 06:49 morphine 4 mg IVP in right antecubital ea [place]
[2019-08-22] MEDS ORDERED: PIPER/TAZO/NS 3.375gm 3.375 GM/100 ML BAG ONE (06:51)
[2019-08-22] MEDS ORDERED: MORPHINE 4 MG/ML SYR IV PRN (06:53)
[2019-08-22] MEDS ORDERED: ACETAMINOPHEN 500 MG TAB PO PRN (06:53)
[2019-08-22] MEDS ORDERED: ONDANSETRON 4 MG/2 ML VIAL IV PRN (06:53)
[2019-08-22] MEDS ORDERED: LIDOCAINE VISCOUS 2% SOLN 15 ML UDC ONE (07:00)
[2019-08-22] MEDS ORDERED: Levofloxacin500mg IV 500 MG/100 ML BAG IV SCH (07:00)
[2019-08-22] MEDS ORDERED: Levofloxacin500mg IV 500 MG/100 ML BAG IV ONE (08:00)
[2019-08-22] MEDS: D5.45NS W/KCL 20MEQ 1,000 ML IV SCH ×2 (08:19→17:00)
--- NOTE | 2019-08-22 10:54 | RAD REPORT ---
EXAM DESCRIPTION: CT - Abdomen Pelvis W Contrast - 08/22/2019 7:01 am CLINICAL HISTORY: The patient is 18 years old and is Male; ABD PAIN TECHNIQUE: Axial computed tomography images of the abdomen and pelvis with intravenous contrast. Sagittal an d coronal reformatted images were created and reviewed. This CT exam was performed using one or mor e of the following dose reduction techniques: automated exposure control, adjustment of the mA and/ or kV according to patient size, and/or use of iterative reconstruction technique. COMPARISON: CT of the abdomen and pelvis August 08, 2019 FINDINGS: LUNG BASES: Unremarkable. No mass. No consolidation. ABDOMEN: LIVER: Unremarkable. No mass. GALLBLADDER AND BILE DUCTS: No calcified stones. No ductal dilation. PANCREAS: No ductal dilation. No mass. SPLEEN: Unremarkable. ADRENALS: Unremarkable. No mass. KIDNEYS AND URETERS: Unremarkable. The kidneys enhance symmetrically. No obstructing renal or ure teral calculus is seen. No hydronephrosis or hydroureter. No perinephric fluid or stranding. STOMACH AND BOWEL: The stomach is decompressed. Multiple dilated fluid-filled and inflamed small bowel loops are present. There is swirling of the mesentery within the right lower quadrant near the surgical site. The very distal small bowel appears to be decompressed. Stool is present throughout t he colon. Anteriorly within the lower anterior abdomen and pelvis, there are several foci of air. I t is unclear if these are located within bowel are air extraluminal. These foci are best appreciated on axial images 64 through 70. PELVIS: APPENDIX: There has been an interval appendectomy. BLADDER: Unremarkable. No mass. REPRODUCTIVE: Unremarkable as visualized. ABDOMEN and PELVIS: INTRAPERITONEAL SPACE: Inflammatory stranding and edema within the mesentery specifically within the right lower quadrant is present. Trace free fluid is present within the pelvis. BONES/JOINTS: No acute fracture. SOFT TISSUES: The soft tissues are normal. VASCULATURE: Unremarkable. No abdominal aortic aneurysm. LYMPH NODES: Unremarkable. No enlarged lymph nodes. IMPRESSION: 1. Findings suggest a closed loop small bowel obstruction, possibly from internal hernia versus volv ulus located within the right lower quadrant. 2. Several foci of air located within the anterior lower abdomen and pelvis. It is unclear if these are foci of air within bowel versus extraluminal. No definite drainable abscess is noted. However, gi jayme the lack of oral contrast and the fluid-filled distal small bowel loops, interloop abscesses are difficult to fully excluded. THIS REPORT CONTAINS FINDINGS THAT MAY BE CRITICAL TO PATIENT CARE: The findings were verbally discussed via telephone conference with Dr. Lilibeth Callahan by Dr. Dorie Anderson on 08/22/2019 6:39 AM CDT .The results were acknowledged and understood. Electronically signed by: Anahi Anderson MD 08/22/2019 6:40 AM CDT Due to temporary technical issues with the PACS/Fluency reporting system, reports are being signed by the in house radiologist as a courtesy to ensure prompt reporting. The interpreting radiologist is f ully responsible for the content of the report.
[2019-08-22] MEDS: METRONIDAZOLE 500mg IVPB 500 MG/100 ML BAG IV SCH ×2 (12:29→18:01)
--- NOTE | 2019-08-22 14:43 | RAD REPORT ---
EXAM DESCRIPTION: RAD - Small Bowel Series - 08/22/2019 2:04 pm CLINICAL HISTORY: bowel obstruction Abdominal pain COMPARISON: Abdomen Pelvis W Contrast dated 08/22/2019 FINDINGS: Cabinetmaker Helper film shows a few prominent bowel loops in the left upper quadrant. No obstruction or free air. No suspicious calcifications. Enteric tube is in the stomach. The stomach was filled with contrast the existing enteric tube. Contrast is seen to slowly exit the s tomach into the proximal small bowel which appears dilated. Further distal movement in small bowel is not seen, most compatible with small bowel obstruction. No fluoroscopy was performed. Total images acquired: 9 IMPRESSION: Proximal small bowel obstruction pattern is seen. Findings were discussed with Dr. Beckwith on 08/22/2019.
[2019-08-22] MEDS ORDERED: SUCCINYLCHOLINE 20 MG/ML (10 ML) IV ONE (14:51)
[2019-08-22] MEDS ORDERED: LIDOCAINE 2% MPF 5 ML VIAL ONE (14:57)
[2019-08-22] MEDS ORDERED: FENTANYL CITR 100 MCG/2 ML ONE ×2 (14:57→15:47)
[2019-08-22] MEDS ORDERED: propofoL 200 MG/20 ML VIAL IV ONE (14:57)
[2019-08-22] MEDS ORDERED: ROCURONIUM 50 MG/5 ML VIAL IV ONE (14:57)
[2019-08-22] MEDS ORDERED: Ringers Lactate 1,000 ML IV ONE ×2 (15:12→17:02)
[2019-08-22] MEDS ORDERED: dexAMETHasone 10 MG/ML VIAL ONE (15:32)
[2019-08-22] MEDS ORDERED: KETOROLAC 30 MG/ML INJ ONE (15:33)
[2019-08-22] MEDS ORDERED: GLYCOPYRROLATE 0.2 MG/ML SYR ONE (15:49)
[2019-08-22] MEDS ORDERED: NEOSTIGMINE 1 MG/ML -5 ML ONE (15:50)
--- NOTE | 2019-08-22 16:15 | P.OP ---
Control Equipment Electrician: Safia HILL Preoperative diagnosis: SBO Postoperative diagnosis: Same, secondary to internal herniation due to adhesions Primary procedure: Diag Lap, Exp Lap, ANUSHA, Repair of Internal Herniation Anesthesia: General Estimated blood loss: min Specimen: none Findings: as above Complications: None Drain(s): Nasogastric, Urinary catheter Transferred to: Recovery Room Condition: Good
[2019-08-22] MEDS: HYDROMORPHONE HCL 2 MG/ML inj ONE ×4 (16:47→17:03)
[2019-08-22] MEDS: HYDROMORPHONE HCL 1 MG/ML INJ ONE ×2 (17:15→17:21)
--- NOTE | 2019-08-22 18:22 | PREOPHP ---
Date of Admission: 08/22/2019 Reason: Abdominal pain, nausea, and vomiting. History Of Present Illness: Patient is a 18-year-old gentleman who underwent a laparoscopic appendec tayler 12 days ago, was uneventful and pathology was reviewed with acute appendicitis. His postop cour se was unremarkable. He followed up with me in the office last and he was doing well with n o complaints and then 2 days ago he started having nausea and vomiting and pain in the lower abdomen going to the back, mostly on the right side and some on the left and called me yesterday and told me had not had a bowel movement. I assume the constipation could be playing a part and advised him for stool softeners and to call if symptoms got worse and he came to the emergency room this morning. Sherwood anibal a CAT scan done which showed small bowel obstruction. He was admitted to my service. He is awake, alert, feels a little better after the NG tube was placed. No further nausea or vomiting. His last bowel movement was 3 days ago. He is not passing gas. No sore throat, runny nose, cough, headaches , or dizziness. No chest pain. Review of Systems: Otherwise unremarkable. Past Medical History: Negative. Past Surgical History: Recent laparoscopic appendectomy. Allergies: NO ALLERGIES. Social History: He does not smoke chronically. He smokes occasionally. Family History: Noncontributory. Drinks alcohol occasionally. Physical Examination: Vital Signs: Stable. He is afebrile. General: He is awake, alert, and oriented x3. Head and Neck: Cranial nerves 2 through 12 are grossly within normal limits. No neck masses. No JV D. Throat clear. Neck is supple. Chest: Clear. Heart: S1 and S2. Abdomen: Soft, slightly distended. Hypoactive bowel sounds. Diffuse tenderness in the lower abdome n. Minimal rebound. No rigidity or guarding. Extremities: Adequately perfused, nontender. Neuro: Nonfocal. Laboratory Data: White count is 13.1 with a slightly left shift. Chemistry reviewed, essentially un remarkable except for potassium being 3.4. CT of the abdomen and pelvis reviewed with the radiologis t is consistent with a small bowel obstruction. Close loop may be internal hernia versus volvulus an d patient had small bowel series done this morning and there was contrast in the stomach, but he does not progress to the small bowel significantly with no antegrade movement seen since that time the co ntrast was placed. Assessment: Small-bowel obstruction. Plan: Admit n.p.o., IV fluid, IV antibiotic, to the OR for diagnostic laparoscopy, possible open. P atient understands the risks, benefits, and alternatives and agrees to procedure /MODL Voice ID: [id number]
[2019-08-22] MEDS ORDERED: NA CHLORIDE 0.9% 1,000 ML IV ONE (20:06)
[2019-08-23] MEDS: METRONIDAZOLE 500mg IVPB 500 MG/100 ML BAG IV SCH ×4 (00:12→17:03)
--- NOTE | 2019-08-23 02:15 | OP ---
Date of Procedure: 08/22/2019 Surgeon: Lexa Beckwith MD Pharmacy Technician Program Director: SERGIO Beltrán. Preoperative Diagnosis: Small-bowel obstruction. Postoperative Diagnosis: Small-bowel obstruction secondary to internal herniation due to adhesions. Procedure Performed: Diagnostic laparoscopy, exploratory laparotomy, and lysis of adhesions. Estimated Blood Loss: Minimal. Specimen: None. Findings: Above. Anesthesia: General. Complications: None. Disposition: Patient tolerated the procedure in stable condition, taken to Recovery in good general condition. Description Of Procedure: Patient was brought to the OR and placed in supine position. General anes thesia was begun. Patient was prepped and draped in the usual sterile fashion. Marcaine 0.5% there locally. A 15-blade was used to make a 1 cm supraumbilical midline incision. Subcutaneous tissue di vided. Fascia was identified and divided. #1 Vicryl stay suture was placed. Peritoneal cavity was entered with sharp and blunt dissection. A 12-mm trocar was placed into the peritoneal cavity under direct vision. Pneumoperitoneum was established. Then, two 5 mm trocars placed 1 in the suprapubic region, 1 in the left lower quadrant. Laparoscopy revealed bluish dark small bowel in the lower abdo men and dilated bowel proximal to that. Obviously, the patient was obstructed, however, it was hard to maneuver the small bowel that was dilated secondary to risk of injury, therefore at this time I de cided to make a midline incision from just above the umbilicus to the pubis. Subcutaneous tissue div ided. Fascia was identified and divided. Peritoneal cavity entered and then exploratory laparotomy revealed an internal herniation of the mesentery with a twist in it in the upper and lower abdomen th is was untwisted and good blood flow to the intestine was reestablished. There was pink coloration o f the bowel throughout entire small bowel from the ileocecal valve to the ligament of Treitz was run. There was no other evidence of disease. There was adhesions that had caused this situation and pat ient has somewhat redundant and long small bowel and that may have contributed to this as well. Subs equently after entire abdomen was examined, there was no other evidence of disease. The appendectomy site was clean and healing well. There was no abscess. There was minimal serous fluid. Entire abd omen was irrigated. Effluent was clear. No evidence of bleeding or bowel injury appreciated and goo d circulation to the bowel reestablished and then the midline was closed with #2 Nylon running in kassandra ure, subcu wounds irrigated. Bleeding controlled with cautery. 3-0 chromic used to reapproximate vance bcutaneous tissue, pippa used to close the skin, dressing was applied. Patient was awakened and ta pierce to Recovery in good general condition. ADIAN/ANDRADE Voice ID: [id number] Report ID: [id number]
[2019-08-23] MEDS: D5.45NS W/KCL 20MEQ 1,000 ML IV SCH ×5 (03:00→23:00)
[2019-08-23] MEDS: HYDROMORPHONE HCL 1 MG/ML INJ IV PRN ×6 (03:04→23:33)
[2019-08-23 05:40] LABS: BUN Blood Urea Nitrogen 14 mg/dL (7-18); Bicarbonate 28 mmol/L (21-32); Glucose Level 112 mg/dL (74-106); Magnesium 1.9 mg/dL (1.8-2.4); Sodium Level 139 mmol/L (136-145)
[2019-08-23 06:02] LABS: Basophils % 0.4 % (0-1.3); Hematocrit 40.4 % (39.6-49.0); Lymphocytes % 7.9 % (15.3-44.8); MPV 8.3 fL (7.6-11.3); RBC Red Blood Cell Count 4.49 M/uL (4.33-5.43)
[2019-08-23 06:17] VITALS: BMI 27.6
[2019-08-23] MEDS: ENOXAPARIN 40 MG/0.4 ML SQ SCH (08:07)
[2019-08-23] MEDS: Levofloxacin500mg IV 500 MG/100 ML BAG IV SCH (08:08)
[2019-08-23] MEDS: PANTOPRAZOLE 40 MG INJ IVP SCH (08:08)
--- NOTE | 2019-08-23 12:45 | PN ---
Date of Progress Note: 08/23/2019 Subjective: Patient is awake, alert, no complaints, passing no gas, complaining of incisional pain. The pain he had before surgery has completely gone. Objective: Vital Signs: Stable. Afebrile. Abdomen: Benign. Hypoactive bowel sounds however. Laboratory Data: Reviewed. Electrolytes reviewed. Assessment: Status post exploratory laparotomy for small-bowel obstruction. Recommendations: We will discontinue the Valentino. We will transfer the patient to the floor. Encoura ge ambulation and incentive spirometry. Patient is clinically stable and slowly improving. /MODL Voice ID: [id number] Report ID: [id number]
[2019-08-24] MEDS: METRONIDAZOLE 500mg IVPB 500 MG/100 ML BAG IV SCH ×5 (00:47→23:31)
[2019-08-24] MEDS: HYDROMORPHONE HCL 1 MG/ML INJ IV PRN ×6 (01:46→20:52)
[2019-08-24 04:30] LABS: Absolute Lymphocytes (CBC) 1.9 K/uL (0.7-4.9); Basophils % 0.3 % (0-1.3); Lymphocytes % 25.4 % (15.3-44.8); MPV 7.9 fL (7.6-11.3); RBC Red Blood Cell Count 4.34 M/uL (4.33-5.43)
[2019-08-24 04:39] LABS: BUN Blood Urea Nitrogen 10 mg/dL (7-18); Bicarbonate 33 mmol/L (21-32); Glucose Level 103 mg/dL (74-106); Magnesium 2.1 mg/dL (1.8-2.4); Potassium 3.9 mmol/L (3.5-5.1); Sodium Level 141 mmol/L (136-145)
[2019-08-24] MEDS: D5.45NS W/KCL 20MEQ 1,000 ML IV SCH ×2 (05:33→19:52)
[2019-08-24] MEDS: Levofloxacin500mg IV 500 MG/100 ML BAG IV SCH (07:43)
[2019-08-24] MEDS: ENOXAPARIN 40 MG/0.4 ML SQ SCH ×2 (07:44→07:46)
[2019-08-24] MEDS: PANTOPRAZOLE 40 MG INJ IVP SCH (07:45)
[2019-08-24] MEDS ORDERED: KCL 20 MEQ/100 mL IVPB 20 MEQ/100 ML BAG IV SCH (08:00)
[2019-08-24] MEDS: ONDANSETRON 4 MG/2 ML VIAL IV PRN ×3 (10:50→20:45)
--- NOTE | 2019-08-24 11:46 | PN ---
Date of Progress Note: 08/24/2019 Subjective: Patient is awake, alert. Pain is controlled, just incisional pain. No nausea or vomiti ng, but no bowel movement and not passing gas. Objective: Vital Signs: Stable. He is afebrile. Abdomen: Benign with hypoactive bowel sounds. Skin: Dressing is clean, dry, and intact. White count is normal. Electrolytes within normal limits. Assessment: Status post exploratory laparotomy for small bowel obstruction. Recommendations: Continue IV antibiotics. N.p.o. NG tube. Encourage ambulation. Incentive spirom etry. Patient probably has prolonged ileus and will open up in the next day or two hopefully. /MODL Voice ID: [id number] Report ID: [id number]
[2019-08-25] MEDS: ONDANSETRON 4 MG/2 ML VIAL IV PRN ×2 (04:53→09:33)
[2019-08-25] MEDS: HYDROMORPHONE HCL 1 MG/ML INJ IV PRN ×4 (04:53→20:39)
[2019-08-25] MEDS: METRONIDAZOLE 500mg IVPB 500 MG/100 ML BAG IV SCH ×3 (05:11→17:15)
[2019-08-25 05:24] LABS: Absolute Lymphocytes (CBC) 1.4 K/uL (0.7-4.9); Basophils % 0.9 % (0-1.3); Hematocrit 42.8 % (39.6-49.0); Lymphocytes % 17.2 % (15.3-44.8); MPV 7.9 fL (7.6-11.3); RBC Red Blood Cell Count 4.73 M/uL (4.33-5.43)
[2019-08-25 05:42] LABS: Blood Morphology Comment NOT SEEN (NOT SEEN); Platelet Estimate ADEQ
[2019-08-25 05:56] LABS: BUN Blood Urea Nitrogen 8 mg/dL (7-18); Bicarbonate 27 mmol/L (21-32); Glucose Level 103 mg/dL (74-106); Sodium Level 140 mmol/L (136-145)
[2019-08-25] MEDS: D5.45NS W/KCL 20MEQ 1,000 ML IV SCH ×3 (09:34→20:38)
[2019-08-25] MEDS: PANTOPRAZOLE 40 MG INJ IVP SCH (09:34)
[2019-08-25] MEDS: Levofloxacin500mg IV 500 MG/100 ML BAG IV SCH (09:34)
--- NOTE | 2019-08-25 10:49 | PN ---
Date of Progress Note: 08/25/2019 Subjective: Patient is awake, alert, no complaint, is passing gas. Has not had a bowel movement. V ital signs stable, afebrile. Laboratory Data: Within normal limits. Objective: Abdomen is soft, nondistended. Positive bowel sounds. No tenderness. Assessment: Status post exploratory laparotomy for small bowel obstruction. Recommendation: We will clamp the NG tube and start him on clear liquids today, encourage ambulation and incentive spirometry. Patient is clinically doing better. /MODL Voice ID: [id number] Report ID: [id number]
[2019-08-26] MEDS: METRONIDAZOLE 500mg IVPB 500 MG/100 ML BAG IV SCH ×5 (00:02→23:49)
[2019-08-26] MEDS: ONDANSETRON 4 MG/2 ML VIAL IV PRN ×2 (00:30→04:58)
[2019-08-26] MEDS: HYDROMORPHONE HCL 1 MG/ML INJ IV PRN ×3 (00:35→19:38)
[2019-08-26] MEDS: MAGNES/ALUMIN/SIMET 30ML UCUP PO SCH ×4 (06:12→23:48)
[2019-08-26] MEDS: PANTOPRAZOLE 40 MG INJ IVP SCH (08:56)
[2019-08-26 09:37] LABS: Absolute Lymphocytes (CBC) 1.2 K/uL (0.7-4.9); Basophils % 0.3 % (0-1.3); Hematocrit 45.4 % (39.6-49.0); Lymphocytes % 12.8 % (15.3-44.8); MPV 7.5 fL (7.6-11.3)
[2019-08-26] MEDS: ENOXAPARIN 40 MG/0.4 ML SQ SCH (09:41)
[2019-08-26] MEDS: Levofloxacin500mg IV 500 MG/100 ML BAG IV SCH (09:42)
[2019-08-26] MEDS ORDERED: SUCRALFATE 1 GM TABLET PO PRN (09:46)
[2019-08-26 09:51] LABS: BUN Blood Urea Nitrogen 11 mg/dL (7-18); Bicarbonate 31 mmol/L (21-32); Glucose Level 104 mg/dL (74-106); Potassium 4.5 mmol/L (3.5-5.1); Sodium Level 137 mmol/L (136-145)
[2019-08-26] MEDS ORDERED: D5.45NS W/KCL 20MEQ 1,000 ML IV SCH (10:03)
--- NOTE | 2019-08-26 12:42 | PN ---
Date of Progress Note: 08/26/2019 Subjective: Patient is awake, alert, had 2 bowel movements, complaining of heartburn. Objective: Vital Signs: Stable, afebrile. NG tube came out accidentally this morning, but had no r esidual. Abdomen: Benign. Laboratory Data: Reviewed. He has normal white count. There is slight left shift still present. E lectrolytes are pending. Assessment: Status post exploratory laparotomy for bowel obstruction. Recommendations: Will advance his diet. Decrease the IV fluids. Tolerating diet. Hopefully home i n a day or 2. Patient clinically doing well. Continue antibiotics. /MODL Voice ID: [id number] Report ID: [id number]
[2019-08-26 20:15] VITALS: O2SAT 98
[2019-08-27] MEDS: HYDROMORPHONE HCL 1 MG/ML INJ IV PRN (01:49)
[2019-08-27] MEDS: MAGNES/ALUMIN/SIMET 30ML UCUP PO SCH (04:54)
[2019-08-27] MEDS: METRONIDAZOLE 500mg IVPB 500 MG/100 ML BAG IV SCH (04:57)
[2019-08-27 08:52] VITALS: BP 133/69; TEMP 98.6
[2019-08-27] MEDS: ENOXAPARIN 40 MG/0.4 ML SQ SCH (09:00)
--- NOTE | 2019-08-27 22:57 | DS ---
Date of Discharge: 08/27/2019 Admitting Diagnosis: Small-bowel obstruction. Procedure Performed: Exploratory laparotomy, lysis of adhesion. Hospital Course: Patient is a 18-year-old gentleman, who underwent the aforementioned procedure. Po stoperatively, he is tolerating diet, ambulating, pain controlled with p.o. pain medication, and afeb rile. Therefore, patient will be discharged to home. Disposition: Home. Condition: Stable. Discharge Instructions: Resume home medications and diet. Activity as tolerated. No heavy lifting. May shower in the a.m. Follow up in my office in a week. Call for appointment. Patient already h as pain medication. /MODL Voice ID: [id number] Report ID: [id number]
== END 2019-08-27 11:21 | disposition home or self-care (01) | DRG 337 ==
LOC: ER 04:58 → ERHOLD 07:00 → 2ND 07:34 → 3RD-ICU 17:10 → 2ND 08-23 12:35
PROVIDERS: ADMIT Surgery; ATTEND Surgery
PROC: 0WJP4ZZ Inspection of Gastrointestinal Tract, Percutaneous Endoscopic Approach (ICD-10-PCS; 2019-08-22)
PROC: 0WJP0ZZ Inspection of Gastrointestinal Tract, Open Approach (ICD-10-PCS; 2019-08-22)
PROC: 0DNV0ZZ Release Mesentery, Open Approach (ICD-10-PCS; principal; 2019-08-22 14:30)
DX: K56.50 Intestinal adhesions [bands], unspecified as to partial versus complete obstruction (principal); F17.210 Nicotine dependence, cigarettes, uncomplicated; Z90.49 Acquired absence of other specified parts of digestive tract
CPT/HCPCS: 36415; 74177; 74250; 80048; 80076; 83690; 83735; 84100; 85025; 96361; 96365; 96375; 97116; 97161; 97530; 99285; C9113; J0330; J1100; J1170; J1650; J2405; J2543; J2704; J2710; J3010; J7030; J7120; Q9967

== ENCOUNTER 2019-10-13 11:11 | Emergency (ER) | payer OTHER ==
--- OUTSIDE RECORDS SUMMARY | 2019-10-13 11:39 | XMS REPORT | Continuity of Care Document ---
:2000 Author Organization [facility] t Address [address] [place] [address] Care Team Providers Name Role Phone Unavailable Unavailable Unavailable Problems Condition Condition Condition Status Onset Resolution Last Treating Co mments Source Name Details Category Date Date Treatment Clinician Date Cigarette Cigarette Problem Active [facility] - dependence dependence Me moria without without l complicati complicati [facility] Clinics Allergies, Adverse Reactions, Alerts This patient has no known allergies or adverse reactions. Medications Ordered Filled Start Stop Current Ordering Indication Dosage Frequency Signature Comments Components Source Medication Medication Date Date Medication? Clinician (SIG) Name Name Potassium Potassium 2019- Yes Na Ugalde [address] [facility] Chloride Chloride 3-12 [facility] - 00:00: [facility] 00 [facility] Clinics Procedures This patient has no known procedures. Encounters Start End Encounter Admission Attending Care Care Encounter Source Date/Time Date/Time Type Type Clinicians Facility Department ID 2019-08-08 2019-08-08 [facility] [id number] [facility] 10:31:00 10:31:00 [employer] [facility] ent Clinics 2018-07-26 2018-07-26 [facility] [id number] [facility] 15:00:00 15:00:00 [employer] [facility] ent Clinics Results This patient has no known results.
--- NOTE | 2019-10-13 12:14 | ER ---
Nurse's Notes [facility] Name: Amadou Hercules Age: 18 yrs Sex: Male : 2000 Arrival Date: 10/13/2019 Time: 11:13 Bed 23 Private MD: Diagnosis: Pain in right knee Presentation: 10/12 11:16 Chief complaint: Patient states: Hit R knee on a scaffold at work yesterday. Reports R ca1 knee pain. Coronavirus screen: Proceed with normal triage. Patient denies a cough. Patient denies shortness of breath or difficulty breathing. Patient denies measured and/or subjective temperature greater than 100.4F prior to today's visit. Patient denies travel on a cruise ship or to a country the [facility] currently lists as an affected area. Patient denies contact with known and/or suspected case of COVID-19. Ebola Screen: Patient negative for fever greater than or equal to 101.5 degrees Fahrenheit, and additional compatible Ebola Virus Disease symptoms Patient denies exposure to infectious person. Patient denies travel to an Ebola-affected area in the 21 days before illness onset. No symptoms or risks identified at this time. Initial Sepsis Screen: Does the patient meet any 2 criteria? No. Patient's initial sepsis screen is negative. Does the patient have a suspected source of infection? No. Patient's initial sepsis screen is negative. Risk Assessment: Do you want to hurt yourself or someone else? Patient reports no desire to harm self or others. Onset of symptoms was October 13, 2019. 11:16 Method Of Arrival: Ambulatory ca1 11:16 Acuity: JACE 4 ca1 Historical: - Allergies: 11:18 No Known Allergies; ca1 - Home Meds: 11:18 None [Active]; ca1 - PMHx: 11:18 None; ca1 - PSHx: 11:18 Appendectomy; ca1 - Immunization history:: Adult Immunizations up to date. - Social history:: Smoking status: Patient reports the use of cigarette tobacco products, denies chronic smoking, but will smoke occasionally. Screenin:54 Abuse screen: Denies threats or abuse. Denies injuries from another. Nutritional iw screening: No deficits noted. Tuberculosis screening: No symptoms or risk factors identified. Fall Risk None identified. Assessment: 11:54 General: Appears in no apparent distress. comfortable, Behavior is calm, cooperative. iw Pain: Complains of pain in right knee. Neuro: Level of Consciousness is awake, alert, obeys commands, Oriented to person, place, time, situation, Moves all extremities. Full function. Cardiovascular: Patient's skin is warm and dry. Respiratory: Respiratory effort is even, unlabored, Respiratory pattern is regular. Derm: Skin is intact, is healthy with good turgor. Musculoskeletal: Range of motion: intact in all extremities. Vital Signs: 11:16 BP 138 / 73; Pulse 68; Resp 18 S; Temp 97.9(TE); Pulse Ox 98% ; Weight 74.84 kg (R); ca1 Height 6 ft. 0 in. (182.88 cm) (R); Pain 5/10; 11:16 Body Mass Index 22.38 (74.84 kg, 182.88 cm) ca1 ED Course: 11:13 Patient arrived in ED. ag5 11:16 Francia Moore FNP-C [facility]. kb 11:16 Lilibeth Callahan MD is Attending Physician. kb 11:18 Triage completed. ca1 11:18 Arm band placed on right wrist. ca1 11:45 Stephanie Urias, RN is Primary Nurse. iw 11:54 Patient has correct armband on for positive identification. iw 12:12 XRAY Knee RIGHT 3 view In Process Unspecified. EDMS 12:25 No provider procedures requiring assistance completed. Patient did not have IV access iw during this emergency room visit. Administered Medications: No medications were administered Outcome: 12:14 Discharge ordered by MD. kb 12:25 Discharged to home ambulatory. iw 12:25 Condition: good 12:25 Discharge instructions given to patient, Instructed on discharge instructions, follow up and referral plans. Demonstrated understanding of instructions, follow-up care. 12:26 Patient left the ED. iw Signatures: Dispatcher [employer] EDMS Francia Moore FNP-C FNP-Ckb Williams, Irene, RN RN Marissa Luis RN RN ca1 Zandra Hernandez ag5
--- NOTE | 2019-10-13 12:27 | EDPHYS ---
Physician Documentation [facility] Name: Amadou Hercules Age: 18 yrs Sex: Male : 2000 Arrival Date: 10/13/2019 Time: 11:13 Bed 23 Private MD: ED Physician Lilibeth Callahan HPI: 10/12 12:24 This 18 yrs old Black Male presents to ER via Ambulatory with complaints of Knee Pain. kb 12:24 The patient presents with pain, that is acute. The complaints affect the right knee. kb Context: The problem was sustained at work, resulted from a direct blow, the patient can fully bear weight, the patient is able to ambulate, Problem is a result from a previous injury: No. Onset: The symptoms/episode began/occurred yesterday. Modifying factors: The symptoms are alleviated by nothing. the symptoms are aggravated by nothing. Associated signs and symptoms: The patient has no apparent associated signs or symptoms. Treatment prior to arrival includes: no previous treatment. Severity of symptoms: At their worst the symptoms were mild, in the emergency department the symptoms are unchanged. The patient has not experienced similar symptoms in the past. The patient has not recently seen a physician. Pt stepped over a pipe yesterday and hit his knee on it. Historical: - Allergies: 11:18 No Known Allergies; ca1 - Home Meds: 11:18 None [Active]; ca1 - PMHx: 11:18 None; ca1 - PSHx: 11:18 Appendectomy; ca1 - Immunization history:: Adult Immunizations up to date. - Social history:: Smoking status: Patient reports the use of cigarette tobacco products, denies chronic smoking, but will smoke occasionally. ROS: 12:23 Constitutional: Negative for fever, chills, and weight loss, Cardiovascular: Negative kb for chest pain, palpitations, and edema, Respiratory: Negative for shortness of breath, cough, wheezing, and pleuritic chest pain, Abdomen/GI: Negative for abdominal pain, nausea, vomiting, diarrhea, and constipation, Back: Negative for injury and pain, Skin: Negative for injury, rash, and discoloration, Neuro: Negative for headache, weakness, numbness, tingling, and seizure. 12:23 MS/extremity: Positive for pain, tenderness, of the right knee. Exam: 12:23 Constitutional: This is a well developed, well nourished patient who is awake, alert, kb and in no acute distress. Head/Face: Normocephalic, atraumatic. Chest/axilla: Normal chest wall appearance and motion. Nontender with no deformity. No lesions are appreciated. Cardiovascular: Regular rate and rhythm with a normal S1 and S2. No gallops, murmurs, or rubs. Normal PMI, no JVD. No pulse deficits. Respiratory: Lungs have equal breath sounds bilaterally, clear to auscultation and percussion. No rales, rhonchi or wheezes noted. No increased work of breathing, no retractions or nasal flaring. Abdomen/GI: Soft, non-tender, with normal bowel sounds. No distension or tympany. No guarding or rebound. No evidence of tenderness throughout. Skin: Warm, dry with normal turgor. Normal color with no rashes, no lesions, and no evidence of cellulitis. MS/ Extremity: Pulses equal, no cyanosis. Neurovascular intact. Full, normal range of motion. Neuro: Awake and alert, GCS 15, oriented to person, place, time, and situation. Cranial nerves II-XII grossly intact. Motor strength 5/5 in all extremities. Sensory grossly intact. Cerebellar exam normal. Normal gait. Vital Signs: 11:16 BP 138 / 73; Pulse 68; Resp 18 S; Temp 97.9(TE); Pulse Ox 98% ; Weight 74.84 kg (R); ca1 Height 6 ft. 0 in. (182.88 cm) (R); Pain 5/10; 11:16 Body Mass Index 22.38 (74.84 kg, 182.88 cm) ca1 MDM: 11:39 Patient medically screened. kb 12:23 Data reviewed: vital signs, nurses notes. Data interpreted: Pulse oximetry: on room air kb is 98 %. Interpretation: normal. Counseling: I had a detailed discussion with the patient and/or guardian regarding: the historical points, exam findings, and any diagnostic results supporting the discharge/admit diagnosis, radiology results, the need for outpatient follow up, a family practitioner, to return to the emergency department if symptoms worsen or persist or if there are any questions or concerns that arise at home. 10/12 11:19 Order name: XRAY Knee RIGHT 3 view ca1 Administered Medications: No medications were administered Disposition: 18:49 Co-signature as Attending Physician, Lilibeth Callahan MD. ma2 Disposition: 10/13/19 12:14 Discharged to Home. Impression: Pain in right knee. - Condition is Stable. - Discharge Instructions: Contusion, [id number], Knee Pain, [id number]-zz-[id number]. - Medication Reconciliation Form, Thank You Letter, Antibiotic Education, Prescription Opioid Use form. - Follow up: Emergency Department; When: As needed; Reason: Worsening of condition. Follow up: Private Physician; When: 2 - 3 days; Reason: Recheck today's complaints, Continuance of care, Re-evaluation by your physician. Signatures: Dispatcher [employer] Francia Gonzalez, LIZZETTE-C INSTRUMENTATION AND CONTROLS TECHNICIAN-Stephanie Saenz RN RN iw Alzahri, Mohammad, MD MD ma2 Marissa Luis RN RN ca1 Corrections: (The following items were deleted from the chart) 12:26 12:14 10/13/2019 12:14 Discharged to Home. Impression: Pain in right knee. Condition is iw Stable. Forms are Medication Reconciliation Form, Thank You Letter, Antibiotic Education, Prescription Opioid Use. Follow up: Emergency Department; When: As needed; Reason: Worsening of condition. Follow up: Private Physician; When: 2 - 3 days; Reason: Recheck today's complaints, Continuance of care, Re-evaluation by your physician. kb
--- NOTE | 2019-10-13 12:35 | RAD REPORT ---
EXAM DESCRIPTION: RAD - Knee Right 3 View - 10/13/2019 12:09 pm CLINICAL HISTORY: Right knee pain status post injury FINDINGS: No fracture or dislocation is seen.
[2019-10-13 12:36] VITALS: BP 138/73; TEMP 97.9; O2SAT 98
== END 2019-10-13 12:26 | disposition home or self-care (01) ==
LOC: ER 11:11
DX: M25.561 Pain in right knee (principal); W22.8XXA Striking against or struck by other objects, initial encounter; Y93.89 Activity, other specified; Y92.69 Other specified industrial and construction area as the place of occurrence of the external cause; Y99.0 Civilian activity done for income or pay; F17.210 Nicotine dependence, cigarettes, uncomplicated
CPT/HCPCS: 99283

== ENCOUNTER 2019-10-30 18:22 | Emergency (ER) | payer OTHER ==
--- OUTSIDE RECORDS SUMMARY | 2019-10-30 18:24 | XMS REPORT | Continuity of Care Document ---
:2000 Author Organization [facility] t Address [address] [place] [address] Care Team Providers Name Role Phone Unavailable [...] Medication? Clinician (SIG) Name Name Potassium Potassium 2019 Yes Na Ugalde [address] [facility] Chloride Chloride 3-12 [facility] Procedures This patient has no known procedures. Encounters Start End Encounter Admission Attending Care Care Encounter Source Date/Time Date/Time Type Type Clinicians Facility Department ID 2019-08-08 2019-08-08 [facility] [id number] [facility] 10:31:00 10:31:00 [facility] 2018-07-26 2018-07-26 [facility] [id number] [facility] 15:00:00 15:00:00 [facility] Results This patient has no known results.
--- NOTE | 2019-10-30 19:21 | ER ---
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 Coronavirus screen: Proceed with normal triage. Patient denies a cough. Patient denies shortness of breath or difficulty breathing. Patient denies measured and/or subjective temperature greater than 100.4F prior to today's visit. Patient denies travel on a cruise ship or to a country the [facility] currently lists as an affected area. Patient denies contact with known and/or suspected case of COVID-19. Ebola Screen: No symptoms or risks identified at this time. Risk Assessment: Do you want to hurt yourself or someone else? Patient reports no desire to harm self or others. Onset of symptoms was October 30, 2019. 18:27 Method Of Arrival: Ambulatory sv 18:27 Acuity: JACE 5 sv 18:29 Initial Sepsis Screen: Does the patient meet any 2 criteria? No. Patient's initial sv sepsis screen is negative. Does the patient have a suspected source of infection? No. Patient's initial sepsis screen is negative. Triage Assessment: 18:28 General: Appears in no apparent distress. comfortable, Behavior is calm, cooperative, sv appropriate for age. Pain: Denies pain. Neuro: Level of Consciousness is awake, alert, obeys commands, Oriented to person, place, time, situation, Gait is steady. Respiratory: Respiratory effort is even, unlabored. Historical: - Allergies: 18:28 No Known Allergies; sv - PSHx: 18:28 Appendectomy; sv Screenin:50 Abuse screen: Denies threats or abuse. Nutritional screening: No deficits noted. Tuberculosis screening: No symptoms or risk factors identified. Fall Risk None identified. Assessment: 18:45 General: Appears in no apparent distress. Behavior is calm, cooperative, appropriate ah for age. Pain: Denies pain. Neuro: Level of Consciousness is awake, alert, obeys commands, Oriented to person, place, time, situation, Appropriate for age. Cardiovascular: Heart tones S1 S2 present Capillary refill < 3 seconds Patient's skin is warm and dry. Respiratory: Airway is patent Respiratory effort is even, unlabored. GI: Bowel sounds present X 4 quads. Reports indigestion. Derm: Skin is intact, is healthy with good turgor, Skin is dry. Vital Signs: 18:29 BP 136 / 69; Pulse 88; Resp 16; Temp 98.7; Pulse Ox 100% ; Weight 122.47 kg; Height 5 sv ft. 11 in. (180.34 cm); 18:29 Body Mass Index 37.66 (122.47 kg, 180.34 cm) ED Course: 18:27 Patient arrived in ED. 18:28 Triage completed. 18:29 Arm band placed on. 18:37 Shelly Mullen, RN is Primary Nurse. 18:44 Spencer Starr PA is PHCP. [facility] 18:45 Fili Leo MD is Attending Physician. [facility] 19:30 Patient has correct armband on for positive identification. Bed in low position. Call light in reach. 19:30 No provider procedures requiring assistance completed. Patient did not have IV access during this emergency room visit. Administered Medications: No medications were administered Outcome: 19:21 Discharge ordered by . [facility] 19:30 Discharged to home ambulatory. 19:30 Condition: good 19:30 Discharge instructions given to patient, Instructed on discharge instructions, follow up and referral plans. Demonstrated understanding of instructions, follow-up care. 20:18 Patient left the ED. Signatures: Jeanine Mcgowan RN RN Spencer Starr PA PA [facility] Shelly Mullen RN RN
--- NOTE | 2019-10-30 19:21 | EDPHYS ---
Physician Documentation [facility] Name: Amadou Hercules Age: 18 yrs Sex: Male : 2000 Arrival Date: 10/30/2019 Time: 18:27 Bed 20 Private MD: ED Physician Fili Leo HPI: 10/29 19:18 This 18 yrs old Black Male presents to ER via Ambulatory with complaints of Heartburn. jr8 19:18 Patient stated that he had some heart burn today which has now resolved. Work wanted jr8 him to get excuse. Denies any other problems . Severity of symptoms: At their worst the symptoms were mild in the emergency department the symptoms have resolved. The patient has experienced similar episodes in the past, a few times. The patient has not recently seen a physician. Historical: - Allergies: 18:28 No Known Allergies; sv - PSHx: 18:28 Appendectomy; sv ROS: 19:18 Eyes: Negative for injury, pain, redness, and discharge, ENT: Negative for injury, jr8 pain, and discharge, Neck: Negative for injury, pain, and swelling, Cardiovascular: Negative for chest pain, palpitations, and edema, Respiratory: Negative for shortness of breath, cough, wheezing, and pleuritic chest pain, Abdomen/GI: Negative for abdominal pain, nausea, vomiting, diarrhea, and constipation, Back: Negative for injury and pain, MS/Extremity: Negative for injury and deformity, Skin: Negative for injury, rash, and discoloration, Neuro: Negative for headache, weakness, numbness, tingling, and seizure. Exam: 19:18 Constitutional: This is a well developed, well nourished patient who is awake, alert, jr8 and in no acute distress. Cardiovascular: Regular rate and rhythm with a normal S1 and S2. No gallops, murmurs, or rubs. Normal PMI, no JVD. No pulse deficits. Respiratory: Lungs have equal breath sounds bilaterally, clear to auscultation and percussion. No rales, rhonchi or wheezes noted. No increased work of breathing, no retractions or nasal flaring. Abdomen/GI: Soft, non-tender, with normal bowel sounds. No distension or tympany. No guarding or rebound. No evidence of tenderness throughout. Skin: Warm, dry with normal turgor. Normal color with no rashes, no lesions, and no evidence of cellulitis. Neuro: Awake and alert, GCS 15, oriented to person, place, time, and situation. Cranial nerves II-XII grossly intact. Motor strength 5/5 in all extremities. Sensory grossly intact. Cerebellar exam normal. Normal gait. Vital Signs: 18:29 BP 136 / 69; Pulse 88; Resp 16; Temp 98.7; Pulse Ox 100% ; Weight 122.47 kg; Height 5 sv ft. 11 in. (180.34 cm); 18:29 Body Mass Index 37.66 (122.47 kg, 180.34 cm) sv MDM: 18:49 Patient medically screened. jr8 19:18 Data reviewed: vital signs, nurses notes, and as a result, I will discharge patient. jr8 Data interpreted: Pulse oximetry: on room air is 100 %. Interpretation: normal. Counseling: I had a detailed discussion with the patient and/or guardian regarding: the historical points, exam findings, and any diagnostic results supporting the discharge/admit diagnosis, the need for outpatient follow up, a family practitioner, to return to the emergency department if symptoms worsen or persist or if there are any questions or concerns that arise at home. ED course: Patient has complete resolution of symptoms. Has it occasionally and normally does not need to take OTC meds for it. No secondary s/s noted on exam or with questioning. Will d/c home to f/u with PCP . Administered Medications: No medications were administered Disposition: 10/30 13:37 Co-signature as Attending Physician, Fili Leo MD I agree with the assessment and mark plan of care. Disposition: 10/30/19 19:21 Discharged to Home. Impression: Heartburn. - Condition is Stable. - Discharge Instructions: Esophagitis, Indigestion. - Work release form, Medication Reconciliation Form, Thank You Letter, Antibiotic Education, Prescription Opioid Use form. - Follow up: Private Physician; When: As needed; Reason: Recheck today's complaints, Continuance of care, Re-evaluation by your physician. - Problem is new. - Symptoms have improved. Signatures: Jeanine Mcgowan RN RN sv Anderson, Corey, MD MD cha Roszak, Josh, PA PA jr8 Shelly Mullen RN RN Corrections: (The following items were deleted from the chart) 10/29 20:18 19:21 10/30/2019 19:21 Discharged to Home. Impression: Heartburn. Condition is Stable. ah Forms are Medication Reconciliation Form, Thank You Letter, Antibiotic Education, Prescription Opioid Use. Follow up: Private Physician; When: As needed; Reason: Recheck today's complaints, Continuance of care, Re-evaluation by your physician. Problem is new. Symptoms have improved. jr8
[2019-10-30 20:31] VITALS: BP 136/69; TEMP 98.7; O2SAT 100
== END 2019-10-30 20:18 | disposition home or self-care (01) ==
LOC: ER 18:22
DX: R12 Heartburn (principal)
CPT/HCPCS: 99281

== ENCOUNTER 2019-12-24 01:01 | Emergency (ER) | payer OTHER ==
--- OUTSIDE RECORDS SUMMARY | 2019-12-24 01:03 | XMS REPORT | Continuity of Care Document ---
:2000 Author Organization [facility] t Address [address] [place] [address] Care Team Providers Name Role Phone Unavailable [...] Medication? Clinician (SIG) Name Name Potassium Potassium Yes Na Ugalde [address] [facility] Ch[facility]ide 3[facility]12 [facility] Procedures This patient has no known procedures. Encounters Start End Encounter Admission Attending Care Care Encounter Source Date/Time Date/Time Type Type Clinicians Facility Department ID 2019-08-08 2019-08-08 [facility] [place] [id number] [facility] 10:31:00 10:31:00 [facility] 2018-07-26 2018-07-26 [facility] [place] [id number] [facility] 15:00:00 15:00:00 [facility] Results This patient has no known results.
[2019-12-24] MEDS ORDERED: PANTOPRAZOLE 40 MG INJ ONE (01:32)
[2019-12-24] MEDS ORDERED: ONDANSETRON 4 MG/2 ML VIAL ONE (01:32)
[2019-12-24 01:54] LABS: Absolute Lymphocytes (CBC) 2.4 K/uL (0.7-4.9); Basophils % 2.1 % (0-1.3); Hematocrit 40.9 % (39.6-49.0); RBC Red Blood Cell Count 4.48 M/uL (4.33-5.43)
[2019-12-24 01:59] LABS: Protime INR 0.99
[2019-12-24 02:11] LABS: ALT/SGPT 113 U/L (12-78); AST/SGOT 48 U/L (15-37); Albumin 3.8 g/dL (3.4-5.0); Alkaline Phosphatase 79 U/L (45-117); BUN Blood Urea Nitrogen 8 mg/dL (7-18); Bicarbonate 27 mmol/L (21-32); Bilirubin Direct < 0.1 mg/dL (0-0.2); Bilirubin Total 0.2 mg/dL (0.2-1.0); Glucose Level 107 mg/dL (74-106); Lipase 197 U/L (73-393); Potassium 3.3 mmol/L (3.5-5.1); Protein, Total 7.5 g/dL (6.4-8.2); Sodium Level 144 mmol/L (136-145)
[2019-12-24 02:22] LABS: Blood Morphology Comment NOT SEEN (NOT SEEN); Platelet Estimate ADEQ
[2019-12-24] MEDS ORDERED: NA CHLORIDE 0.9% 1,000 ML ONE (03:45)
--- NOTE | 2019-12-24 03:59 | EDPHYS ---
Physician Documentation [facility] Name: Amadou Hercules Age: 19 yrs Sex: Male : 2000 Arrival Date: 12/24/2019 Time: 01:05 Bed 7 Private MD: ED Physician Augusto Vernon HPI: 12/23 01:16 This 19 yrs old Black Male presents to ER via Unassigned with complaints of Vomiting - rn Blood. 01:16 The patient presents to the emergency department with nausea, vomiting. Onset: The rn symptoms/episode began/occurred just prior to arrival. Possible causes: unknown. The symptoms are aggravated by alcohol, The symptoms are alleviated by nothing. Associated signs and symptoms: Pertinent positives: GI bleeding, nausea, vomiting, Pertinent negatives: abdominal pain, fever. Severity of symptoms: At their worst the symptoms were moderate in the emergency department the symptoms have improved. The patient has experienced a previous episode. Reports heavy EOTH intake today, + nausea, began to throw up, had some blood in it, bright red, went on to throw up blood 3 times total, decreasing in amount each time. Has happened to him once before and was ETOH related as well, got better on his own. Reports appendicitis and bowel obstruction in August of this year. Reports not having abd pain like did those times, no blood thinners, no trauma.. Historical: - Allergies: 01:18 No Known Allergies; rr5 - PSHx: 01:18 Appendectomy; "intestine surgery"; rr5 - Immunization history:: Adult Immunizations up to date. - Family history:: not pertinent. - Social history:: Smoking status: Patient reports the use of cigarette tobacco products, smokes one pack cigarettes per day. - Hospitalizations: : No recent hospitalization is reported. ROS: 01:16 Constitutional: Negative for fever, chills, and weight loss, Eyes: Negative for injury, rn pain, redness, and discharge, Cardiovascular: Negative for chest pain, palpitations, and edema, Respiratory: Negative for shortness of breath, cough, wheezing, and pleuritic chest pain, Abdomen/GI: Negative for abdominal pain, diarrhea, and constipation, MS/Extremity: Negative for injury and deformity, Skin: Negative for injury, rash, and discoloration, Neuro: Negative for headache, weakness, numbness, tingling, and seizure. Exam: 01:16 Constitutional: This is a well developed, well nourished patient who is awake, alert, rn and in no acute distress. Ambulatory to room without difficulty or assistance. Head/Face: Normocephalic, atraumatic. Eyes: Pupils equal round and reactive to light, extra-ocular motions intact. Lids and lashes normal. Conjunctiva and sclera are non-icteric and not injected. Cornea within normal limits. Periorbital areas with no swelling, redness, or edema. Cardiovascular: Regular rate and rhythm. No pulse deficits. Respiratory: No increased work of breathing, no retractions or nasal flaring. Abdomen/GI: soft, non-tender, non-distended MS/ Extremity: Pulses equal, no cyanosis. Neurovascular intact. Full, normal range of motion. Equal circumference. Neuro: Awake and alert, GCS 15, oriented to person, place, time, and situation. Cranial nerves II-XII grossly intact. Motor strength 5/5 in all extremities. Sensory grossly intact. Cerebellar exam normal. Normal gait. Vital Signs: 01:15 BP 140 / 82; Pulse 84; Resp 18; Temp 98.2; Pulse Ox 99% ; Weight 90.72 kg; Height 6 ft. rr5 (182.88 cm); 02:34 BP 99 / 57; Pulse 80; Resp 16; Pulse Ox 99% ; rr5 03:38 BP 99 / 55; Pulse 65; Resp 16; Pulse Ox 98% on R/A; rv 04:10 BP 98 / 55; Pulse 66; Resp 16; Temp 98; Pulse Ox 99% on R/A; rv 01:15 Body Mass Index 27.12 (90.72 kg, 182.88 cm) rr5 MDM: 01:08 Patient medically screened. rn 03:57 Differential diagnosis: gastritis, pancreatitis, nat-hendrickson tear. Data reviewed: rn vital signs, nurses notes, lab test result(s), radiologic studies, CT scan, and as a result, I will discharge patient. Counseling: I had a detailed discussion with the patient and/or guardian regarding: the historical points, exam findings, and any diagnostic results supporting the discharge/admit diagnosis, lab results, radiology results, the need for outpatient follow up, to return to the emergency department if symptoms worsen or persist or if there are any questions or concerns that arise at home. Response to treatment: the patient's symptoms have markedly improved after treatment, and as a result, I will discharge patient. Special discussion: I discussed with the patient/guardian in detail that at this point there is no indication for admission to the hospital. It is understood, however, that if the symptoms persist or worsen the patient needs to return immediately for re-evaluation. Based on the history and exam findings, there is no indication for further emergent testing or inpatient evaluation. I discussed with the patient/guardian the need to see the template clerk for further evaluation of the symptoms. ED course: No further episodes of emesis or hematemesis here in ER, stable vitals, symptoms improved, normal h/h, no acute findings on CT, recommend ETOH cessation and return precautions given/explained.. 12/23 01:14 Order name: Basic Metabolic Panel; Complete Time: 02: 12/23 01:14 Order name: CBC with Diff; Complete Time: 02: 12/23 01:14 Order name: Hepatic Function; Complete Time: 02: 12/23 01:14 Order name: Lipase; Complete Time: 02: 12/23 01:14 Order name: PT-INR; Complete Time: 02: 12/23 01:14 Order name: Ptt, Activated; Complete Time: 02: 12/23 01:14 Order name: IV Saline Lock; Complete Time: 01:39 12/23 01:14 Order name: CT Abd/Pelvis - IV Contrast Only rn 12/23 01:15 Order name: ETOH Level; Complete Time: 02: 12/23 01:50 Order name: CREATININE WHOLE BLOOD; Complete Time: 02:04 EDTN 12/23 02:02 Order name: Manual Differential; Complete Time: 02: EDTN 12/23 01:14 Order name: Labs collected and sent; Complete Time: 01:39 rn Administered Medications: 01:30 Drug: ProTONIX 40 mg Route: IVP; Site: right antecubital; ea 03:39 Follow up: Response: No adverse reaction rv 01:39 Drug: Zofran (Ondansetron) 4 mg Route: IVP; Site: right antecubital; ea 03:39 Follow up: Response: No adverse reaction rv 03:38 Drug: NS 0.9% 1000 ml Route: IV; Rate: 1000 ml; Site: right antecubital; rv 04:11 Follow up: IV Status: Completed infusion; IV Intake: 1000ml rv Disposition: 12/24/19 03:58 Discharged to Home. Impression: Hematemesis, Alcohol use, unspecified with intoxication, unspecified. - Condition is Stable. - Discharge Instructions: Gastritis, Adult, Gastrointestinal Bleeding, Hematemesis, Nat-Hendrickson Syndrome. - Prescriptions for Zofran ODT 4 mg Oral tablet,disintegrating - place 1 tablet by TRANSLINGUAL route every 8 hours As needed; 15 tablet. - Medication Reconciliation Form, Thank You Letter, Antibiotic Education, Prescription Opioid Use form. - Follow up: Ben Joseph; When: As needed; Reason: Recheck today's complaints, Re-evaluation by your physician. - Problem is new. - Symptoms have improved. Signatures: Dispatcher [employer] EDMS Augusto Vernon MD MD rn Antunez, Elena, RN RN Manuel Dennis RN Lico Sanz RN RN rr5 Corrections: (The following items were deleted from the chart) 04:12 03:58 12/24/2019 03:58 Discharged to Home. Impression: Hematemesis; Alcohol use, rv unspecified with intoxication, unspecified. Condition is Stable. Discharge Instructions: Gastritis, Adult, Gastrointestinal Bleeding, Hematemesis, Nat-Hendrickson Syndrome. Prescriptions for Zofran ODT 4 mg Oral tablet,disintegrating - place 1 tablet by TRANSLINGUAL route every 8 hours As needed; 15 tablet. and Forms are Medication Reconciliation Form, Thank You Letter, Antibiotic Education, Prescription Opioid Use. Follow up: Ben Joseph; When: As needed; Reason: Recheck today's complaints, Re-evaluation by your physician. Problem is new. Symptoms have improved. rn
--- NOTE | 2019-12-24 03:59 | ER ---
Nurse's Notes [facility] Name: Amadou Hercules Age: 19 yrs Sex: Male : 2000 Arrival Date: 12/24/2019 Time: 01:05 Bed 7 Private MD: Diagnosis: Hematemesis;Alcohol use, unspecified with intoxication, unspecified Presentation: 12/23 01:15 Chief complaint: Patient states: Report had three episodes of bloody vomiting after rr5 drinking. Had appy and intestine surgery one month ago. Coronavirus screen: At this time, the client does not indicate any symptoms associated with coronavirus-19. Ebola Screen: No symptoms or risks identified at this time. Initial Sepsis Screen: Does the patient meet any 2 criteria? No. Patient's initial sepsis screen is negative. Does the patient have a suspected source of infection? No. Patient's initial sepsis screen is negative. Risk Assessment: Do you want to hurt yourself or someone else? Patient reports no desire to harm self or others. Onset of symptoms was December 24, 2019. 01:15 Method Of Arrival: Ambulatory rr5 01:15 Acuity: JACE 3 rr5 Triage Assessment: 01:19 General: Appears uncomfortable, Behavior is appropriate for age. rr5 01:37 GI: Reports vomiting. ea Historical: - Allergies: 01:18 No Known Allergies; rr5 - PSHx: 01:18 Appendectomy; "intestine surgery"; rr5 - Immunization history:: Adult Immunizations up to date. - Family history:: not pertinent. - Social history:: Smoking status: Patient reports the use of cigarette tobacco products, smokes one pack cigarettes per day. - Hospitalizations: : No recent hospitalization is reported. Screenin:17 Abuse screen: Denies threats or abuse. Nutritional screening: No deficits noted. rr5 Tuberculosis screening: No symptoms or risk factors identified. Fall Risk None identified. Assessment: 01:36 General: Appears uncomfortable, Behavior is appropriate for age. Pain: Complains of ea pain in abdomen. Neuro: Level of Consciousness is awake, alert, obeys commands, Oriented to person, place, time. Cardiovascular: Patient's skin is warm and dry. Respiratory: Airway is patent Respiratory effort is even, unlabored, Respiratory pattern is regular, symmetrical. GI: Abdomen is non-distended. Derm: Skin is pink, warm \\T\\ dry. 03:37 Reassessment: DR VERNON REASSESSED THE PATIENT. STILL AWAITING CT SCAN REPORT AT THIS rv TIME. Neuro: Level of Consciousness is awake, alert, obeys commands, Oriented to person, place, time, situation. GI: Abdomen is non-distended, Bowel sounds present X 4 quads. 04:11 Neuro: Level of Consciousness is awake, alert, obeys commands, Oriented to person, rv place, time, situation. Respiratory: Airway is patent Respiratory effort is even, unlabored. GI: Abdomen is non-distended, Patient currently denies abdominal pain. Vital Signs: 01:15 BP 140 / 82; Pulse 84; Resp 18; Temp 98.2; Pulse Ox 99% ; Weight 90.72 kg; Height 6 ft. rr5 (182.88 cm); 02:34 BP 99 / 57; Pulse 80; Resp 16; Pulse Ox 99% ; rr5 03:38 BP 99 / 55; Pulse 65; Resp 16; Pulse Ox 98% on R/A; rv 04:10 BP 98 / 55; Pulse 66; Resp 16; Temp 98; Pulse Ox 99% on R/A; rv 01:15 Body Mass Index 27.12 (90.72 kg, 182.88 cm) rr5 ED Course: 01:05 Patient arrived in ED. bg2 01:08 Augusto Vernon MD is Attending Physician. rn 01:17 Triage completed. rr5 01:18 Arm band placed on right wrist. Patient placed in an exam room, on a stretcher, on rr5 pulse oximetry. 01:18 Patient has correct armband on for positive identification. Bed in low position. Call rr5 light in reach. 01:30 Inserted saline lock: 20 gauge in right antecubital area, using aseptic technique. ea Blood collected. 01:57 Manuel Lewis, RIKY is Primary Nurse. rv 02:04 CT Abd/Pelvis - IV Contrast Only In Process Unspecified. EDMS 03:58 Ben Joseph MD is Referral Physician. rn 04:11 No provider procedures requiring assistance completed. IV discontinued, intact, rv bleeding controlled, No redness/swelling at site. Pressure dressing applied. Administered Medications: 01:30 Drug: ProTONIX 40 mg Route: IVP; Site: right antecubital; ea 03:39 Follow up: Response: No adverse reaction rv 01:39 Drug: Zofran (Ondansetron) 4 mg Route: IVP; Site: right antecubital; ea 03:39 Follow up: Response: No adverse reaction rv 03:38 Drug: NS 0.9% 1000 ml Route: IV; Rate: 1000 ml; Site: right antecubital; rv 04:11 Follow up: IV Status: Completed infusion; IV Intake: 1000ml rv Intake: 04:11 IV: 1000ml; Total: 1000ml. rv Outcome: 03:58 Discharge ordered by . rn 04:11 Discharged to home ambulatory. rv 04:11 Condition: good 04:11 Discharge instructions given to patient, Instructed on discharge instructions, follow up and referral plans. medication usage, Demonstrated understanding of instructions, follow-up care, medications, Prescriptions given X 1. 04:12 Patient left the ED. rv Signatures: Dispatcher [employer] EDMS Augusto Vernon MD MD rn Glass, Brittany 2 Rita Solis RN RN ea Vicente, Ronaldo RN Lico Sanz, RN RN rr5
--- NOTE | 2019-12-24 15:10 | RAD REPORT ---
EXAM DESCRIPTION: CT - Abdomen Pelvis W Contrast - 12/24/2019 2:03 am CLINICAL HISTORY: Hematemesis, recent obstruction and appendicitis COMPARISON: 08/22/2019. TECHNIQUE: CT ABDOMEN PELVIS WITH IV CONTRAST on 12/24/2019 1:14 AM CDT This exam was performed according to our departmental dose-optimization program, which includes autom ated exposure control, adjustment of the mA and/or kV according to patient size and/or use of iterati ve reconstruction technique. FINDINGS: Lower lungs are clear. Abdomen: The liver is normal in appearance. There is no biliary dilatation. Gallbladder is normal in appearance. The pancreas and spleen are normal in appearance. The adrenal glands and kidneys are unre markable. Abdominal aorta is normal in course and caliber without aneurysm. There is no free air. There is no r etroperitoneal adenopathy. Pelvis: There is no bowel obstruction. Urinary bladder is unremarkable. There is no free fluid. Appen dea is not clearly seen. Skeleton: There are no acute osseous findings. No suspicious bony lesions. IMPRESSION: No definite acute findings. Electronically signed by: John Vazquez MD 12/24/2019 2:20 AM CDT Due to temporary technical issues with the PACS/Fluency reporting system, reports are being signed by the in house radiologist without review as a courtesy to ensure prompt reporting. The interpreting r adiologist is fully responsible for the content of the report.
== END 2019-12-24 04:12 | disposition home or self-care (01) ==
LOC: ER 01:01
DX: F10.929 Alcohol use, unspecified with intoxication, unspecified (principal); F17.210 Nicotine dependence, cigarettes, uncomplicated
CPT/HCPCS: 85025; 80048; 36415; 80320; 85610; 82565; 80076; 85730; 83690; 74177; Q9967; C9113; J7030; J2405; 96361; 96374; 96375; 99284

== ENCOUNTER 2020-01-08 11:06 | Emergency (ER) | payer OTHER ==
--- OUTSIDE RECORDS SUMMARY | 2020-01-08 11:08 | XMS REPORT | Continuity of Care Document ---
:2000 Author Organization [facility] t Address [address] [place] [address] Care Team Providers Name Role Phone Unavailable [...] Medication? Clinician (SIG) Name Name Potassium Potassium 2018- Yes Na Ugalde [address] [facility] 3[facility] Procedures This patient has no known procedures. Encounters Start End Encounter Admission Attending Care Care Encounter Source Date/Time Date/Time Type Type Clinicians Facility Department ID 2019-08-08 2019-08-08 Outpatient [facility] [place] [id number] [facility] 10:31:00 10:31:00 [employer] [facility] 2018-07-26 2018-07-26 [facility] [place] [id number] [facility] 15:00:00 15:00:00 [employer] [facility] Results This patient has no known results.
--- NOTE | 2020-01-08 12:55 | EDPHYS ---
Physician Documentation [facility] Name: Amadou Hercules Age: 19 yrs Sex: Male : 2000 Arrival Date: 01/08/2020 Time: 11:13 Bed 24 Private MD: ED Physician Lilibeth Callahan HPI: 01/07 13:08 This 19 yrs old Black Male presents to ER via Ambulatory with complaints of left foot snw Injury. 13:08 The patient presents with pain, that is acute. The complaints affect the dorsum of left snw foot. Onset: The symptoms/episode began/occurred suddenly, yesterday. Context: The problem was sustained at a sports field or court, resulted from a heavy object falling, another player, The mechanism of injury involved adduction of the affected ankle. The mechanism of injury involved axial compression of the affected ankle. The patient can partially bear weight on the affected extremity. Associated signs and symptoms: Pertinent positives: swelling. Modifying factors: The symptoms are alleviated by sitting, the symptoms are aggravated by weight bearing. Severity of symptoms: At their worst the symptoms were moderate. It is unknown whether or not the patient has had similar symptoms in the past. The patient has not recently seen a physician. Historical: - Allergies: 11:18 No Known Allergies; ll1 - PSHx: 11:18 Appendectomy; "intestine surgery"; ll1 - Immunization history:: Flu vaccine is up to date. - Social history:: Smoking status: Patient denies any tobacco usage or history of. Patient uses alcohol, occasionally. only on a social basis. Patient/guardian denies using alcohol, street drugs. ROS: 13:07 Constitutional: Negative for fever, chills, and weight loss, Eyes: Negative for injury, snw pain, redness, and discharge, ENT: Negative for injury, pain, and discharge, Neck: Negative for injury, pain, and swelling, Cardiovascular: Negative for chest pain, palpitations, and edema, Respiratory: Negative for shortness of breath, cough, wheezing, and pleuritic chest pain, Abdomen/GI: Negative for abdominal pain, nausea, vomiting, diarrhea, and constipation, Back: Negative for injury and pain, : Negative for injury, bleeding, discharge, and swelling, Skin: Negative for injury, rash, and discoloration, Neuro: Negative for headache, weakness, numbness, tingling, and seizure, Psych: Negative for depression, anxiety, suicide ideation, homicidal ideation, and hallucinations. 13:07 MS/extremity: Positive for injury or acute deformity, contusion, pain, swelling, of the dorsum of left foot. Exam: 12:53 Constitutional: This is a well developed, well nourished patient who is awake, alert, snw and in no acute distress. Head/Face: Normocephalic, atraumatic. Eyes: Pupils equal round and reactive to light, extra-ocular motions intact. Lids and lashes normal. Conjunctiva and sclera are non-icteric and not injected. Cornea within normal limits. Periorbital areas with no swelling, redness, or edema. ENT: Nares patent. No nasal discharge, no septal abnormalities noted. Tympanic membranes are normal and external auditory canals are clear. Oropharynx with no redness, swelling, or masses, exudates, or evidence of obstruction, uvula midline. Mucous membranes moist. Neck: Trachea midline, no thyromegaly or masses palpated, and no cervical lymphadenopathy. Supple, full range of motion without nuchal rigidity, or vertebral point tenderness. No Meningismus. Chest/axilla: Normal chest wall appearance and motion. Nontender with no deformity. No lesions are appreciated. Cardiovascular: Regular rate and rhythm with a normal S1 and S2. No gallops, murmurs, or rubs. Normal PMI, no JVD. No pulse deficits. Respiratory: Lungs have equal breath sounds bilaterally, clear to auscultation and percussion. No rales, rhonchi or wheezes noted. No increased work of breathing, no retractions or nasal flaring. Abdomen/GI: Soft, non-tender, with normal bowel sounds. No distension or tympany. No guarding or rebound. No evidence of tenderness throughout. Back: No spinal tenderness. No costovertebral tenderness. Full range of motion. Skin: Warm, dry with normal turgor. Normal color with no rashes, no lesions, and no evidence of cellulitis. Neuro: Awake and alert, GCS 15, oriented to person, place, time, and situation. Cranial nerves II-XII grossly intact. Motor strength 5/5 in all extremities. Sensory grossly intact. Cerebellar exam normal. Normal gait. Psych: Awake, alert, with orientation to person, place and time. Behavior, mood, and affect are within normal limits. 12:53 Musculoskeletal/extremity: Extremities: grossly normal except: noted in the dorsum of left foot: contusion, swelling, tenderness, ROM: no acute changes, Circulation is intact in all extremities. Sensation intact. Vital Signs: 11:16 BP 129 / 77; Pulse 78; Resp 17; Temp 98.8; Pulse Ox 99% ; Pain 6/10; ll1 MDM: 12:38 Patient medically screened. snw 13:08 Data reviewed: vital signs, nurses notes. Data interpreted: Pulse oximetry: on room air snw is 99 %. Interpretation: normal. Counseling: I had a detailed discussion with the patient and/or guardian regarding: the historical points, exam findings, and any diagnostic results supporting the discharge/admit diagnosis, lab results, the need for outpatient follow up, to return to the emergency department if symptoms worsen or persist or if there are any questions or concerns that arise at home. Special discussion: Based on the history and exam findings, there is no indication for further emergent testing or inpatient evaluation. I discussed with the patient/guardian the need to see the orthopedic surgeon for further evaluation of the symptoms. 01/07 12:34 Order name: Foot Left 3 View XRAY; Complete Time: 13:23 iw 01/07 12:53 Order name: Walking boot; Complete Time: 13:34 snw Administered Medications: 13:25 Drug: Motrin 400 mg Route: PO; iw 13:50 Follow up: Response: No adverse reaction iw 13:26 Drug: Sheldon 5 mg-325 mg 1 tabs Route: PO; iw 13:50 Follow up: Response: No adverse reaction iw Disposition: 17:19 Co-signature as Attending Physician, Lilibeth Callahan MD. ma2 Disposition: 01/08/20 12:54 Discharged to Home. Impression: Unspecified sprain of left foot. - Condition is Stable. - Discharge Instructions: Foot Sprain, RICE for Routine Care of Injuries, Walking Boot. - Prescriptions for Mobic 7.5 mg Oral Tablet - take 1 tablet by ORAL route once daily take with food; 20 tablet. - Work release form, Medication Reconciliation Form, Thank You Letter, Antibiotic Education, Prescription Opioid Use form. - Follow up: Emergency Department; When: As needed; Reason: Worsening of condition. Follow up: Private Physician; When: 5 - 6 days; Reason: Recheck today's complaints, Continuance of care, Re-evaluation by your physician. Signatures: Dispatcher [employer] Leandra Reece FNP-C FNP-Stephanie Heller RN RN iw Lilibeth Callahan MD MD ma2 Conchis Hernandez RN RN ll1 Corrections: (The following items were deleted from the chart) 13:39 12:54 01/08/2020 12:54 Discharged to Home. Impression: Unspecified sprain of left foot. iw Condition is Stable. Forms are Medication Reconciliation Form, Thank You Letter, Antibiotic Education, Prescription Opioid Use. Follow up: Emergency Department; When: As needed; Reason: Worsening of condition. Follow up: Private Physician; When: 5 - 6 days; Reason: Recheck today's complaints, Continuance of care, Re-evaluation by your physician. snw
--- NOTE | 2020-01-08 12:55 | ER ---
Nurse's Notes [facility] Name: Amadou Hercules Age: 19 yrs Sex: Male : 2000 Arrival Date: 01/08/2020 Time: 11:13 Bed 24 Private MD: Diagnosis: Unspecified sprain of left foot Presentation: 01/07 11:16 Chief complaint: Patient states: Another player jumped on his foot on accident ll1 yesterday while playing basketball. Left foot pain since. Coronavirus screen: Client denies travel out of the [place] in the last 14 days. At this time, the client does not indicate any symptoms associated with coronavirus-19. Ebola Screen: Patient denies travel to an Ebola-affected area in the 21 days before illness onset. Initial Sepsis Screen: Does the patient meet any 2 criteria? No. Patient's initial sepsis screen is negative. Risk Assessment: Do you want to hurt yourself or someone else? Patient reports no desire to harm self or others. Onset of symptoms was January 07, 2020. 11:16 Method Of Arrival: Ambulatory ll1 11:16 Acuity: JACE 4 ll1 11:18 Initial Sepsis Screen: Does the patient have a suspected source of infection? No. iw Patient's initial sepsis screen is negative. Triage Assessment: 12:30 General: Appears in no apparent distress. Behavior is calm, cooperative. iw Historical: - Allergies: 11:18 No Known Allergies; ll1 - PSHx: 11:18 Appendectomy; "intestine surgery"; ll1 - Immunization history:: Flu vaccine is up to date. - Social history:: Smoking status: Patient denies any tobacco usage or history of. Patient uses alcohol, occasionally. only on a social basis. Patient/guardian denies using alcohol, street drugs. Screenin:38 Abuse screen: Denies threats or abuse. Denies injuries from another. Nutritional iw screening: No deficits noted. Tuberculosis screening: No symptoms or risk factors identified. Fall Risk None identified. Assessment: 12:30 General: Appears in no apparent distress. comfortable, Behavior is calm, cooperative. iw Pain: Complains of pain in left foot and dorsum of left foot. Neuro: Level of Consciousness is awake, alert, obeys commands, Oriented to person, place, time, situation, Moves all extremities. Full function. Cardiovascular: Patient's skin is warm and dry. Respiratory: Respiratory effort is even, unlabored, Respiratory pattern is regular, symmetrical. Derm: Skin is intact, is healthy with good turgor. Musculoskeletal: Range of motion: intact in all extremities. Vital Signs: 11:16 BP 129 / 77; Pulse 78; Resp 17; Temp 98.8; Pulse Ox 99% ; Pain 6/10; ll1 ED Course: 11:13 Patient arrived in ED. mr 11:17 Triage completed. ll1 11:18 Arm band placed on. ll1 11:18 Patient has correct armband on for positive identification. iw 12:29 Stephanie Urias, RN is Primary Nurse. iw 12:39 Leandra Stafford FNP-C is [facility]. snw 12:39 Lilibeth Clalahan MD is Attending Physician. snw 13:09 Foot Left 3 View XRAY In Process Unspecified. EDMS 13:38 No provider procedures requiring assistance completed. Patient did not have IV access iw during this emergency room visit. Administered Medications: 13:25 Drug: Motrin 400 mg Route: PO; iw 13:50 Follow up: Response: No adverse reaction iw 13:26 Drug: [place] 5 mg-325 mg 1 tabs Route: PO; iw 13:50 Follow up: Response: No adverse reaction iw Outcome: 12:54 Discharge ordered by . snw 13:38 Discharged to home ambulatory. iw 13:38 Condition: good 13:38 Discharge instructions given to patient, Instructed on discharge instructions, follow up and referral plans. medication usage, Demonstrated understanding of instructions, follow-up care, medications, Prescriptions given X 1. 13:39 Patient left the ED. iw Signatures: Dispatcher [employer] EDMS Leandra Stafford FNP-C FNP-[facility] [place] Stephanie Urias, RN RN iw Conchis Hernandez RN RN ll1
--- NOTE | 2020-01-08 13:19 | RAD REPORT ---
EXAM DESCRIPTION: RAD - Foot Left 3 View - 01/08/2020 1:10 pm CLINICAL HISTORY: Left Foot pain FINDINGS: No fracture or dislocation is seen.
[2020-01-08] MEDS ORDERED: HYDROCODONE/APAP 5/325 MG TAB ONE (13:35)
[2020-01-08] MEDS ORDERED: IBUPROFEN 400 MG TAB ONE (13:36)
[2020-01-09 03:56] VITALS: BP 129/77; TEMP 98.8; O2SAT 99
== END 2020-01-08 13:39 | disposition home or self-care (01) ==
LOC: ER 11:06
DX: S93.602A Unspecified sprain of left foot, initial encounter (principal); W22.8XXA Striking against or struck by other objects, initial encounter; Y93.9 Activity, unspecified; Y92.39 Other specified sports and athletic area as the place of occurrence of the external cause
CPT/HCPCS: 99283

== ENCOUNTER 2020-02-05 11:14 | Emergency (ER) | payer OTHER ==
[2020-02-05 12:34] LABS: Absolute Lymphocytes (CBC) 2.5 K/uL (0.7-4.9); Basophils % 0.7 % (0-1.3); Hematocrit 44.5 % (39.6-49.0); MPV 7.6 fL (7.6-11.3)
[2020-02-05 12:44] LABS: BUN Blood Urea Nitrogen 13 mg/dL (7-18); Bicarbonate 27 mmol/L (21-32); Glucose Level 93 mg/dL (74-106); Potassium 3.7 mmol/L (3.5-5.1); Sodium Level 138 mmol/L (136-145)
[2020-02-05 13:21] LABS: Blood Morphology Comment NOT SEEN (NOT SEEN); Platelet Estimate ADEQ
--- NOTE | 2020-02-05 13:24 | ER ---
Nurse's Notes [facility] Name: Amadou Hercules Age: 19 yrs Sex: Male : 2000 Arrival Date: 02/05/2020 Time: 11:18 Bed 25 Private MD: Diagnosis: Diarrhea, unspecified Presentation: 02/04 11:28 Chief complaint: Patient states: Diarrhea with nausea for 10 days. No fever. Had ll1 appy/intestinal surgery about [address] Beckwith. Coronavirus screen: Client denies travel out of the [place] in the last 14 days. At this time, the client does not indicate any symptoms associated with coronavirus-19. Ebola Screen: Patient denies travel to an Ebola-affected area in the 21 days before illness onset. Initial Sepsis Screen: Does the patient meet any 2 criteria? No. Patient's initial sepsis screen is negative. Risk Assessment: Do you want to hurt yourself or someone else? Patient reports no desire to harm self or others. Onset of symptoms was January 27, 2020. 11:28 Method Of Arrival: Ambulatory ll1 11:28 Acuity: JACE 3 ll1 12:56 Initial Sepsis Screen: Does the patient have a suspected source of infection? No. ca1 Patient's initial sepsis screen is negative. Historical: - Allergies: 11:30 No Known Allergies; ll1 - PSHx: 11:30 Appendectomy; "intestine surgery"; ll1 - Immunization history:: Flu vaccine is up to date. - Social history:: Smoking status: Reported history of juuling and/or vaping. Screenin:10 Abuse screen: Denies threats or abuse. Denies injuries from another. Nutritional ca1 screening: No deficits noted. Tuberculosis screening: No symptoms or risk factors identified. Fall Risk IV access (20 points). Assessment: 12:10 General: Appears in no apparent distress. comfortable, Behavior is calm, cooperative, ca1 appropriate for age. Pain: Denies pain. Neuro: Level of Consciousness is awake, alert, obeys commands, Oriented to person, place, time, situation. Cardiovascular: Heart tones S1 S2 present Capillary refill < 3 seconds Patient's skin is warm and dry. Respiratory: Airway is patent Respiratory effort is even, unlabored, Respiratory pattern is regular, symmetrical, Breath sounds are clear bilaterally. GI: Abdomen is flat, non-distended, Bowel sounds present X 4 quads. Abd is soft and non tender X 4 quads. Reports diarrhea, nausea, vomiting, since 10 days ago. : No signs and/or symptoms were reported regarding the genitourinary system. EENT: No signs and/or symptoms were reported regarding the EENT system. Derm: Skin is intact, is healthy with good turgor, Skin is pink, warm \\T\\ dry. Musculoskeletal: Circulation, motion, and sensation intact. Capillary refill < 3 seconds. 12:56 Reassessment: Patient appears in no apparent distress at this time. No changes from ca1 previously documented assessment. Patient and/or family updated on plan of care and expected duration. Pain level reassessed. Patient is alert, oriented x 3, equal unlabored respirations, skin warm/dry/pink. Vital Signs: 11:28 BP 106 / 92; Pulse 82; Resp 18; Temp 98.5; Pulse Ox 100% ; Weight 92.99 kg; Height 6 ll1 ft. 0 in. (182.88 cm); Pain 1/10; 12:30 BP 115 / 75; Pulse 73; Resp 15 S; Pulse Ox 100% ; ca1 13:31 BP 108 / 89; Pulse 71; Resp 15 S; Pulse Ox 100% on R/A; ca1 11:28 Body Mass Index 27.80 (92.99 kg, 182.88 cm) ll1 ED Course: 11:18 Patient arrived in ED. mr 11:29 Triage completed. ll1 11:30 Arm band placed on. ll1 11:32 Francia Moore FNP-C is [facility]. kb 11:32 Augusto Vernon MD is Attending Physician. kb 12:10 Patient has correct armband on for positive identification. Placed in gown. Bed in low ca1 position. Call light in reach. Side rails up X 1. Pulse ox on. NIBP on. Warm blanket given. 12:15 Marissa Luis, RIKY is Primary Nurse. ca1 12:23 No provider procedures requiring assistance completed. Initial lab(s) drawn, by mn, ca1 sent to lab. Inserted saline lock: 20 gauge in right antecubital area, using aseptic technique. Blood collected. 12:25 CBC with Diff Sent. ca1 12:25 Basic Metabolic Panel Sent. ca1 13:30 Stool specimen sent to lab. ca1 13:31 Occult Blood Sent. ca1 13:31 Ova And Parasites Sent. ca1 13:31 Stool Culture Sent. ca1 13:37 IV discontinued, intact, bleeding controlled, No redness/swelling at site. Pressure ca1 dressing applied. Administered Medications: No medications were administered Outcome: 13:23 Discharge ordered by MD. kb 13:37 Discharged to home ambulatory. ca1 13:37 Condition: stable 13:37 Discharge instructions given to patient, Instructed on discharge instructions, follow up and referral plans. medication usage, Demonstrated understanding of instructions, follow-up care, medications, Prescriptions given X 1. 13:37 Patient left the ED. ca1 Signatures: Francia Moore, GEAR SHAVER SET UP OPERATOR-C GEAR SHAVER SET UP OPERATOR-Malachi Dexter Ora mr Marissa Luis, RN RN ca1 Conchis Hernandez RN RN ll1
--- NOTE | 2020-02-05 13:24 | EDPHYS ---
Physician Documentation [facility] Name: Amadou Hercules Age: 19 yrs Sex: Male : 2000 Arrival Date: 02/05/2020 Time: 11:18 Bed 25 Private MD: ED Physician Augusto Vernon HPI: 02/04 13:15 This 19 yrs old Black Male presents to ER via Ambulatory with complaints of Diarrhea, kb Nausea. 13:15 The patient presents to the emergency department with nausea, diarrhea. Onset: The kb symptoms/episode began/occurred 10 day(s) ago. Possible causes: unknown. The symptoms are aggravated by nothing. The symptoms are alleviated by nothing. Associated signs and symptoms: Pertinent positives: diarrhea, nausea, Pertinent negatives: abdominal pain, fever. Severity of symptoms: At their worst the symptoms were moderate in the emergency department the symptoms are unchanged. The patient has not experienced similar symptoms in the past. The patient has not recently seen a physician. Historical: - Allergies: 11:30 No Known Allergies; ll1 - PSHx: 11:30 Appendectomy; "intestine surgery"; ll1 - Immunization history:: Flu vaccine is up to date. - Social history:: Smoking status: Reported history of juuling and/or vaping. ROS: 13:15 Constitutional: Negative for fever, chills, and weight loss, Cardiovascular: Negative kb for chest pain, palpitations, and edema, Respiratory: Negative for shortness of breath, cough, wheezing, and pleuritic chest pain, Back: Negative for injury and pain, MS/Extremity: Negative for injury and deformity, Skin: Negative for injury, rash, and discoloration, Neuro: Negative for headache, weakness, numbness, tingling, and seizure. 13:15 Abdomen/GI: Positive for nausea, diarrhea, Negative for abdominal pain, vomiting, constipation. Exam: 13:13 Constitutional: This is a well developed, well nourished patient who is awake, alert, kb and in no acute distress. Head/Face: Normocephalic, atraumatic. Chest/axilla: Normal chest wall appearance and motion. Nontender with no deformity. No lesions are appreciated. Cardiovascular: Regular rate and rhythm with a normal S1 and S2. No gallops, murmurs, or rubs. Normal PMI, no JVD. No pulse deficits. Respiratory: Lungs have equal breath sounds bilaterally, clear to auscultation and percussion. No rales, rhonchi or wheezes noted. No increased work of breathing, no retractions or nasal flaring. Abdomen/GI: Soft, non-tender, with normal bowel sounds. No distension or tympany. No guarding or rebound. No evidence of tenderness throughout. Skin: Warm, dry with normal turgor. Normal color with no rashes, no lesions, and no evidence of cellulitis. MS/ Extremity: Pulses equal, no cyanosis. Neurovascular intact. Full, normal range of motion. Neuro: Awake and alert, GCS 15, oriented to person, place, time, and situation. Cranial nerves II-XII grossly intact. Motor strength 5/5 in all extremities. Sensory grossly intact. Cerebellar exam normal. Normal gait. Vital Signs: 11:28 BP 106 / 92; Pulse 82; Resp 18; Temp 98.5; Pulse Ox 100% ; Weight 92.99 kg; Height 6 ll1 ft. 0 in. (182.88 cm); Pain 1/10; 12:30 BP 115 / 75; Pulse 73; Resp 15 S; Pulse Ox 100% ; ca1 13:31 BP 108 / 89; Pulse 71; Resp 15 S; Pulse Ox 100% on R/A; ca1 11:28 Body Mass Index 27.80 (92.99 kg, 182.88 cm) ll1 MDM: 12:06 Patient medically screened. kb 13:14 Data reviewed: vital signs, nurses notes. Data interpreted: Pulse oximetry: on room air kb is 100 %. Interpretation: normal. 13:14 Counseling: I had a detailed discussion with the patient and/or guardian regarding: the kb historical points, exam findings, and any diagnostic results supporting the discharge/admit diagnosis, lab results, the need for outpatient follow up, a family practitioner, to return to the emergency department if symptoms worsen or persist or if there are any questions or concerns that arise at home. 02/04 12:14 Order name: Basic Metabolic Panel; Complete Time: 12:50 kb 02/04 12:14 Order name: CBC with Diff; Complete Time: 13:23 kb 02/04 12:54 Order name: Occult Blood kb 02/04 12:54 Order name: Ova And Parasites kb 02/04 12:54 Order name: Stool Culture kb 02/04 13:16 Order name: Manual Differential; Complete Time: 13:23 EDAK 02/04 12:14 Order name: IV Saline Lock; Complete Time: 12:25 kb 02/04 12:14 Order name: Labs collected and sent; Complete Time: 12:25 kb Administered Medications: No medications were administered Disposition: 17:56 Co-signature as Attending Physician, Augusto Venron MD. rn Disposition: 02/05/20 13:23 Discharged to Home. Impression: Diarrhea, unspecified. - Condition is Stable. - Discharge Instructions: Food Choices to Help Relieve Diarrhea, Adult, Diarrhea, Adult, [id number]. - Prescriptions for Zofran 4 mg Oral Tablet - take 1 tablet by ORAL route every 6 hours As needed; 20 tablet. - Medication Reconciliation Form, Thank You Letter, Antibiotic Education, Prescription Opioid Use, Work release form form. - Follow up: Private Physician; When: 2 - 3 days; Reason: Recheck today's complaints, Continuance of care, Re-evaluation by your physician. Follow up: Emergency Department; When: As needed; Reason: Worsening of condition. Signatures: Dispatcher [employer] [facility] Francia Moore, RETAIL COORDINATOR-C RETAIL COORDINATOR-Ckb Augusto Vernon MD MD rn Janelle, Marissa, RN RN ca1 Conchis Hernandez RN RN ll1 Corrections: (The following items were deleted from the chart) 13:37 13:23 02/05/2020 13:23 Discharged to Home. Impression: Diarrhea, unspecified. Condition ca1 is Stable. Forms are Medication Reconciliation Form, Thank You Letter, Antibiotic Education, Prescription Opioid Use. Follow up: Private Physician; When: 2 - 3 days; Reason: Recheck today's complaints, Continuance of care, Re-evaluation by your physician. Follow up: Emergency Department; When: As needed; Reason: Worsening of condition. kb
[2020-02-05 13:43] VITALS: TEMP 98.5; O2SAT 100
[2020-02-05 13:46] VITALS: BP 108/89
--- OUTSIDE RECORDS SUMMARY | 2020-02-08 06:18 | XMS REPORT | Continuity of Care Document ---
:[address] [facility] [place] t Address [address] [place] [address] Care Team Providers Name Role Phone Unavailable [...] 3-12 [facility] Procedures This patient has no known procedures. Encounters Start End Encounter Admission Attending Care Care Encounter Source Date/Time Date/Time Type Type Clinicians Facility Department ID 2019-08-08 2019-08-08 [facility] [id number] [facility] [address] 10:31:00 10:31:[address] [facility] 2018-07-26 2018-07-26 [facility] [id number] [facility] [address] 15:00:00 15:00:00 [facility] Clinics Results This patient has no known results.
== END 2020-02-05 13:37 | disposition home or self-care (01) ==
LOC: ER 11:14
DX: R19.7 Diarrhea, unspecified (principal); Z87.891 Personal history of nicotine dependence
CPT/HCPCS: 36415; 80048; 82274; 85025; 87045; 87046; 87177; 87209; 99284

== ENCOUNTER 2020-09-09 07:05 | Emergency (ER) | payer OTHER, SELFPAY ==
--- OUTSIDE RECORDS SUMMARY | 2020-09-09 07:07 | XMS REPORT | Continuity of Care Document ---
:2000 Author Organization [facility] t Address [address] [place] [address] Care Team Providers Name Role Phone Unavailable [...] Potassium 2019-0 Yes Na Ugalde [address] [facility] Chloride Chloride 3-12 [facility]: [facility] Procedures This patient has no known procedures. Encounters Start End Encounter Admission Attending Care Care Encounter Source Date/Time Date/Time Type Type Clinicians Facility Department ID 2019-08-08 2019-08-08 [facility] [id number] [facility] [address] 10:31:00 10:31:00 Appature [facility] 2018-07-26 2018-07-26 [facility] [id number] [facility] 15:00:00 15:00:00 sarvaMAIL [facility] Results This patient has no known results.
[2020-09-09 07:45] LABS: Urine Blood Trace-intact (Negative); Urine Glucose Negative (Negative); Urine Protein Negative (Negative); Urine Specific Gravity >=1.030 (1.005-1.030); Urine pH 5.5 (5.0-7.0)
--- NOTE | 2020-09-09 08:17 | ER ---
Nurse's Notes [facility] Name: Amadou Hercules Age: 19 yrs Sex: Male : 2000 Arrival Date: 09/09/2020 Time: 07:08 Bed 16 Private MD: Diagnosis: Gingivitis and periodontal diseases Presentation: 09/09 07:21 Chief complaint: Patient states: "I had a physical for my job and they said i have jd3 blood in my piss. I also am here because I am having pain on the left side of my gums like my jaw or something.". Coronavirus screen: At this time, the client does not indicate any symptoms associated with coronavirus-19. Ebola Screen: Patient negative for fever greater than or equal to 101.5 degrees Fahrenheit, and additional compatible Ebola Virus Disease symptoms. Initial Sepsis Screen: Does the patient meet any 2 criteria? No. Patient's initial sepsis screen is negative. Does the patient have a suspected source of infection? No. Patient's initial sepsis screen is negative. Risk Assessment: Do you want to hurt yourself or someone else? Patient reports no desire to harm self or others. Onset of symptoms was September 08, 2020. 07:21 Method Of Arrival: Ambulatory jd3 07:21 Acuity: JACE 3 jd3 Historical: - Allergies: 07:23 No Known Allergies; jd3 - Home Meds: 07:23 None [Active]; jd3 - PMHx: 07:23 None; jd3 - PSHx: 07:23 Appendectomy; "intestine surgery"; jd3 - Immunization history:: Adult Immunizations up to date. - Social history:: Smoking status: Patient reports the use of cigarette tobacco products, denies chronic smoking, but will smoke occasionally. - Family history:: not pertinent. - Hospitalizations: : No recent hospitalization is reported. Screenin:22 Abuse screen: Denies threats or abuse. Nutritional screening: No deficits noted. kg Tuberculosis screening: No symptoms or risk factors identified. Fall Risk None identified. No fall in past 12 months (0 pts). No secondary diagnosis (0 pts). No IV (0 pts). Ambulatory Aid- None/Bed Rest/Nurse Assist (0 pts). Gait- Normal/Bed Rest/Wheelchair (0 pts) Mental Status- Oriented to own ability (0 pts). Assessment: 07:45 General: Appears in no apparent distress. Behavior is calm, cooperative, appropriate kg for age, quiet. Pain: Complains of pain in face Pain currently is 7 out of 10 on a pain scale. at worst was 7 out of 10 on a pain scale. level that patient reports is acceptable is 3 out of 10 on a pain scale. Neuro: No deficits noted. Cardiovascular: No deficits noted. Cardiovascular: Heart tones S1 S2. Cardiovascular: Capillary refill < 3 seconds. Respiratory: No deficits noted. Airway is patent Breath sounds are clear bilaterally. GI: No deficits noted. : Reports Pt stated, "I went to get a physical for work and they stated I had blood in my urine and needed to drink more water. Also tt feels like I need to pee but unable to go at time.". EENT: Redness and inflammation noted to back, bottom, left molar. . Reports Pt reports pain on the back, lower, bottom molar. Pt states "I cant really describe the pain but almost like a cut and swollen". Derm: No deficits noted. Musculoskeletal: No deficits noted. Vital Signs: 07:23 BP 143 / 85; Pulse 69; Resp 17 S; Temp 98.5(TE); Pulse Ox 99% on R/A; Weight 104.33 kg jd3 (R); Height 6 ft. 1 in. (185.42 cm) (R); Pain 7/10; 08:22 BP 119 / 82; Pulse 90; Resp 18; Pulse Ox 100% on R/A; kg 07:23 Body Mass Index 30.34 (104.33 kg, 185.42 cm) jd3 ED Course: 07:08 Patient arrived in ED. bp1 07:22 Triage completed. jd3 07:26 Arm band placed on. jd3 07:29 Sara Mcdaniel is Primary Nurse. kg 07:44 Augusto Vernon MD is Attending Physician. rn 08:22 Patient has correct armband on for positive identification. Bed in low position. Call kg light in reach. Side rails up X 1. 08:29 No provider procedures requiring assistance completed. Patient did not have IV access kg during this emergency room visit. Administered Medications: No medications were administered Outcome: 08:16 Discharge ordered by . rn 08:23 Discharged to home ambulatory. kg 08:23 Condition: good 08:23 Discharge instructions given to patient, Instructed on discharge instructions, follow up and referral plans. Demonstrated understanding of instructions, follow-up care, medications, Prescriptions given X 2. 08:30 Patient left the ED. kg Signatures: Augusto Vernon MD MD rn Davies, Jonathon, RN RN jAmber Jones Kristen kg
--- NOTE | 2020-09-09 08:17 | EDPHYS ---
Physician Documentation [facility] Name: Amadou Hercules Age: 19 yrs Sex: Male : 2000 Arrival Date: 09/09/2020 Time: 07:08 Bed 16 Private MD: ED Physician Augusto Vernon HPI: 09/09 08:14 This 19 yrs old Black Male presents to ER via Ambulatory with complaints of dental pain.rn 08:14 The patient presents with pain. Onset: The symptoms/episode began/occurred last night. rn Modifying factors: The symptoms are alleviated by nothing, the symptoms are aggravated by chewing. Severity of symptoms: At their worst the symptoms were moderate, in the emergency department the symptoms are unchanged. The patient has not experienced similar symptoms in the past. Reports dental pain that kept him from sleeping last night, no trauma, hurts to chew and touch.. Historical: - Allergies: 07:23 No Known Allergies; jd3 - Home Meds: 07:23 None [Active]; jd3 - PMHx: 07:23 None; jd3 - PSHx: 07:23 Appendectomy; "intestine surgery"; jd3 - Immunization history:: Adult Immunizations up to date. - Social history:: Smoking status: Patient reports the use of cigarette tobacco products, denies chronic smoking, but will smoke occasionally. - Family history:: not pertinent. - Hospitalizations: : No recent hospitalization is reported. ROS: 08:14 Constitutional: Negative for fever, chills, and weight loss, Eyes: Negative for injury, rn pain, redness, and discharge, ENT: + left molar pain Neck: Negative for injury, pain, and swelling, Cardiovascular: Negative for chest pain, palpitations, and edema, Respiratory: Negative for shortness of breath, cough, wheezing, and pleuritic chest pain. Exam: 08:14 Constitutional: This is a well developed, well nourished patient who is awake, alert, rn and in no acute distress. Head/Face: Normocephalic, atraumatic. ENT: Nares patent. No nasal discharge. Mucous membranes moist. + left lower posterior gums inflamed, no abscess seen Vital Signs: 07:23 BP 143 / 85; Pulse 69; Resp 17 S; Temp 98.5(TE); Pulse Ox 99% on R/A; Weight 104.33 kg jd3 (R); Height 6 ft. 1 in. (185.42 cm) (R); Pain 7/10; 08:22 BP 119 / 82; Pulse 90; Resp 18; Pulse Ox 100% on R/A; kg 07:23 Body Mass Index 30.34 (104.33 kg, 185.42 cm) jd3 MDM: 07:44 Patient medically screened. rn 08:14 Differential diagnosis: dental caries, gingivitis, dental abscess. Data reviewed: vital rn signs, nurses notes, and as a result, I will discharge patient. Counseling: I had a detailed discussion with the patient and/or guardian regarding: the historical points, exam findings, and any diagnostic results supporting the discharge/admit diagnosis, the need for outpatient follow up, to return to the emergency department if symptoms worsen or persist or if there are any questions or concerns that arise at home. Special discussion: I discussed with the patient/guardian in detail that at this point there is no indication for admission to the hospital. It is understood, however, that if the symptoms persist or worsen the patient needs to return immediately for re-evaluation. Based on the history and exam findings, there is no indication for further emergent testing or inpatient evaluation. I discussed with the patient/guardian the need to see a dentist for further evaluation of the symptoms. 09/09 07:45 Order name: Urine Dipstick-Ancillary; Complete Time: 07:56 EDMS Administered Medications: No medications were administered Disposition: 09/09/20 08:16 Discharged to Home. Impression: Gingivitis and periodontal diseases. - Condition is Stable. - Discharge Instructions: Dental Caries, Adult, Gingivitis. - Prescriptions for Peridex 0.12 % Mucous Membrane mouthwash - place 15 milliliter by MUCOUS MEMBRANE route 2 times per day after brushing teeth, swish in mouth for 30 seconds then spit out; 1 bottle. Clindamycin HCl 300 mg Oral Capsule - take 1 capsule by ORAL route every 6 hours for 10 days; 40 capsule. - Medication Reconciliation Form, Thank You Letter, Antibiotic Education, Prescription Opioid Use, Work release form form. - Follow up: Private Physician; When: As needed; Reason: Recheck today's complaints, Re-evaluation by your physician. - Problem is new. - Symptoms are unchanged. Signatures: Augusto Vernon MD MD rn Davies, Jonathon, RN RN Sara Garcia kg Corrections: (The following items were deleted from the chart) 08:30 08:16 09/09/2020 08:16 Discharged to Home. Impression: Gingivitis and periodontal kg diseases. Condition is Stable. Forms are Medication Reconciliation Form, Thank You Letter, Antibiotic Education, Prescription Opioid Use. Follow up: Private Physician; When: As needed; Reason: Recheck today's complaints, Re-evaluation by your physician. Problem is new. Symptoms are unchanged. rn
[2020-09-09 08:39] VITALS: TEMP 98.5
[2020-09-09 08:40] VITALS: BP 119/82; O2SAT 100
== END 2020-09-09 08:30 | disposition home or self-care (01) ==
LOC: ER 07:05
DX: K05.10 Chronic gingivitis, plaque induced (principal); F17.210 Nicotine dependence, cigarettes, uncomplicated
CPT/HCPCS: 81003; 99282